=== PATIENT | male | born 1935 | race Caucasian/White ===

== ENCOUNTER 2018-11-15 17:46 | Inpatient (IN) | payer OTHER ==
[~2018-11-15] VITALS: Ht 182.9 cm; Wt 57.4 kg
[2018-11-15 20:54] VITALS: BP 141/71
--- NOTE | 2018-11-15 21:00 | NUR ---
RN perri admission notes Received Pt direct admit from [facility]. Pt arrived with two EMT personnels by a carisa. Pt is alert and oriented X2 and confused but able to make needs known. PT is on 5150 (gravely disabled adult and danger to others), converted to 14 days hold 11/27/18. Pt diagnose is Rule Out TB by Dr. Fernandez. Respiration is normal. No SOB. No nausea or vomiting. Pt denies any pain or discomfort. Pt does not have an IV access at this time. Pt is on negative pressure room with a sitter in the room. Pt also in contact precautions for MRSA and R/O of scabies. Wound care consult ordered for AM. Skin assessment done and pictures taken and placed in Pt's chart. Pt's belonging checked and done. Safety precautions is maintained. Instructed to call. Bed at low position, brakes locked, side rails upX2 and call light is within reach. Sitter at the bedside. Will continue to monitor.
--- NOTE | 2018-11-15 21:35 | NUR ---
RN medsurg notes Faxed face sheet to [facility]. Called [facility] to have psych eval by Dr. Monteiro.
[2018-11-15] MEDS ORDERED: LORA-258 PO (22:40)
[2018-11-15] MEDS ORDERED: MUPI22OI7 NS (22:40)
[2018-11-15] MEDS ORDERED: DIVA125C2 PO (22:40)
[2018-11-15] MEDS ORDERED: MAGN400O6 PO (22:40)
[2018-11-15] MEDS ORDERED: ACET-73 PO (22:40)
[2018-11-15] MEDS ORDERED: MEMA10TA PO (22:40)
[2018-11-15] MEDS ORDERED: DONE5TAB7 PO (22:40)
[2018-11-15] MEDS ORDERED: MAG355OR32 PO (22:40)
[2018-11-15] MEDS ORDERED: QUET25TA PO ×2 (22:40)
--- NOTE | 2018-11-15 22:40 | NUR ---
RN medsurg notes Contacted and informed Dr. Shaffer for direct admit orders. Meds reconcile is done already. Awaiting for direct admit orders.
--- NOTE | 2018-11-15 23:00 | NUR ---
NORMA rayo notes Pt refused to have an IV access insertion. Educated Pt about the important to have IV access. Pt states " I don't need it!" Will try again later.
[2018-11-15] MEDS ORDERED: ACETAMINOPHEN 325 MG TABLET PO PRN (23:30)
[2018-11-15] MEDS ORDERED: HYDROCODONE/APAP 5/325MG 1 EACH TABLET PO PRN (23:30)
[2018-11-15] MEDS ORDERED: MAGNESIUM HYDROXIDE 30 ML UDC PO PRN (23:30)
[2018-11-15] MEDS ORDERED: ONDANSETRON HCL/PF 4 MG/2 ML VIAL IVP PRN (23:30)
[2018-11-15] MEDS ORDERED: Z GUARD REMEDY 2 OZ OINT TP PRN (23:30)
[2018-11-15] MEDS ORDERED: MORPHINE SULFATE INJ 2 MG/ML DISP.SYRIN IV PRN (23:30)
[2018-11-15] MEDS ORDERED: PERMETHRIN 59 ML BOTTLE TP ONE (23:30)
[2018-11-15] MEDS ORDERED: MAG HYDROX/AL HYDROX/SIMETH 30 ML UDC PO PRN ×2 (23:30)
--- NOTE | 2018-11-15 23:44 | NUR ---
RNmedsurg notes Informed Dr. Fernandez that Pt has allergy to morphine, iodine and tertracycline. Stop order for morphine sulfate. Charge nurse NORMA Bullock aware and informed.
--- NOTE | 2018-11-16 02:00 | NUR ---
RN perri notes Pt refused to have IV access insertion. Tried multiple times Pt's keep refusing. Will continue to monitor.
--- NOTE | 2018-11-16 03:09 | NUR ---
RN medsur notes Pt is very agitated. Pt punched the wall. Informed and contacted Dr. Fernandez to get an order IM. Pt doesn't have IV access. Pt refused IV access earlier. Awaiting to get an order.
--- NOTE | 2018-11-16 03:13 | NUR ---
RN medsurg notes Received order from Dr. Fernandez for Ativan 2 mg IM x1. Order carried out.
[2018-11-16] MEDS ORDERED: LORAZEPAM INJ 2 MG/ML VIAL IM ONE (03:30)
--- NOTE | 2018-11-16 04:00 | NUR ---
RN joonsurshannon notes Pt was hitting the wall. Skin assessment done and pictures taken and placed in pt' chart. Sitter at the bed side. Will continue to monitor.
--- NOTE | 2018-11-16 04:15 | NUR ---
RN medsurg notes Pt grabbed AUSTIN Dominique by the neck. Informed and notified Charge nurse NORMA Bullock. Picture taken. Will continue to monitor.
--- NOTE | 2018-11-16 07:00 | NUR ---
RN medsurg notes Pt is alert and oriented X1-2. Pt is resting in bed comfortably. No SOB. No nausea or vomiting. Pt denies any pain or discomfort. Pt is on airborne precautions for R/O TB. 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 Wound care consult ordered. Pt refused IV access. Safety precautions is maintained. Bed at low position, brakes locked, side rails upX2 and call light is within reach. Sitter at the bedside. Will inform to morning nurse for MAXX.
--- NOTE | 2018-11-16 07:21 | NUR ---
MR RN OPENING NOTES RECEIVED PT ;EEP IN BED, EASILY AROUSABLE. HOB ELEVATED WITH 1:1 SITTER AT BEDSIDE. PT ON AIRBORNE PRECAUTIONS IN PLACE TO R/O TB. CONTACT PRECAUTIONS FOR MRSA AND R/O SCABIES MAINTAINED. ON ROOM AIR, BREATHING EVEN AND UNLABORED, NO SOB NOTED. SAFETY MEASURES IN PLACE. BED IN LOW LOCKED POSITION WITH SR UP X2. CALL LIGHT WITHIN REACH. WILL CONTINUE TO MONITOR ACCORDINGLY.
[2018-11-16 07:25] LABS: ALANINE AMINOTRANSFERASE 13 U/L (12-78); ALKALINE PHOSPHATASE 82 U/L (46-116); ASPARTATE AMINOTRANSFERASE 19 U/L (15-37); BILIRUBIN,TOTAL 0.4 mg/dL (0.2-1.0); CALCIUM, SERUM 8.6 mg/dL (8.5-10.1); CARBON DIOXIDE 21 mmol/L (21-32); CHLORIDE 109 mmol/L (98-107); CREATININE 1.3 mg/dL (0.6-1.3); GLUCOSE 82 mg/dL (74-106); MAGNESIUM 1.8 mg/dL (1.8-2.4); PHOSPHORUS 2.6 mg/dL (2.5-4.9); POTASSIUM 3.7 mmol/L (3.5-5.1); SODIUM SERUM 143 mmol/L (136-145); TOTAL PROTEIN, SERUM 7.3 g/dL (6.4-8.2); UREA NITROGEN, BLOOD 25 mg/dL (7-18)
[2018-11-16 07:48] LABS: BASOPHILS % (AUTO) 0.5 % (0.0-2.0); HEMATOCRIT 38 % (39-51); HEMOGLOBIN 12.5 g/dL (13.5-17.5); LYMPHOCYTES # (AUTO) 1.5 /CMM (0.8-4.8); LYMPHOCYTES % (AUTO) 25.6 % (20.0-44.0); MEAN CORPUSCULAR HGB CONC 33 g/dl (31.0-36.0); MEAN CORPUSCULAR VOLUME 97 fL (80-96); MONOCYTES # (AUTO) 0.7 /CMM (0.1-1.30); MONOCYTES % (AUTO) 12.2 % (2.0-12.0); NEUTROPHILS # (AUTO) 3.3 /CMM (1.8-8.9); NEUTROPHILS % (AUTO) 54.7 % (43.0-81.0); RED BLOOD CELL COUNT(AUTO) 3.89 MIL/uL (4.5-6.0)
[2018-11-16 08:00] VITALS: BP 122/78
[2018-11-16] MEDS: MUPIROCIN OINT 2% 22 GM TUBE SCH ×2 (08:27→21:38)
[2018-11-16] MEDS: MAGNESIUM HYDROXIDE 30 ML UDC PO SCH (08:27)
[2018-11-16] MEDS: PANTOPRAZOLE 40 MG TABLET.DR PO SCH (08:27)
[2018-11-16] MEDS: MEMANTINE HCL 5 MG TABLET PO SCH ×2 (08:27→21:32)
--- NOTE | 2018-11-16 08:33 | NUR ---
RN NOTES PATIENT CALM AND EATING BREAKFAST AT THIS TIME. HE TOOK ALL HIS MORNING MEDS WITHOUT PROBLEM. HE REMAINS REFUSING IV INSERTION. WILL CONTINUE TO MONITOR.
[2018-11-16] MEDS ORDERED: DIVALPROEX SODIUM 125 MG CAP.SPRINK PO SCH (09:00)
--- NOTE | 2018-11-16 09:15 | NUR ---
RN NOTES JUST RECEIVED CALL FROM [employer] AND INFORMED THAT PT'S PLATELET THIS MORNING IS 175 AND NOT 82.
[2018-11-16 09:20] LABS: PLATELET COUNT (AUTO) 175 /CMM (150-450)
[2018-11-16 09:46] LABS: LYMPHOCYTES % (MANUAL) 28 % (16-48); NEUTROPHILS % (MANUAL) 60 (42-76)
--- NOTE | 2018-11-16 09:46 | NUR ---
RN NOTES CALLED [employer] TO INFORMED LAMONT MAY REGARDING PT'S INCIDENT/ AGGRESSIVE BEHAVIOR FROM PREVIOUS SHIFT. SPOKE TO [employer] REWORKER AND SAID THAT DR DUNN IS NOT ON TODAY AND THAT KATY SHAW IS AWARE THAT PT HAS PSYCH CONSULT WILL COME AND SEE PT TODAY.
[2018-11-16 09:47] LABS: EOSINOPHILS % (MANUAL) 3 % (0-4); MONOCYTES % (MANUAL) 9 % (0-11.0)
--- NOTE | 2018-11-16 09:55 | NUR ---
RN NOTES INFORMED PT THAT WE NEED TO COLLECT SPUTUM SPECIMEN X3 FOR AFB AND VERBALIZED UNDERSTANDING. PT NOT COUGHING WITH NO SPUTUM OBTAINED AT THIS TIME. SPECIMEN BOTTLE PLACED AT BEDSIDE. WILL CONTINUE TO MONITOR.
--- NOTE | 2018-11-16 11:23 | NUR ---
RN NOTES PATIENT SEEN AND EVALUATED BY DR AVILES WITH ORDER TO START SEROQUEL 12.5MG PO DAILY AND 75MG AT HS. WILL CONTINUE TO MONITOR PT.
[2018-11-16] MEDS: QUETIAPINE FUMARATE 25 MG TABLET PO SCH (11:46)
[2018-11-16] MEDS: DIVALPROEX SODIUM 125 MG CAP.SPRINK PO SCH ×2 (12:11→17:31)
--- NOTE | 2018-11-16 14:11 | NUR ---
RN NOTES PT SEEN BY DR PERDUE. ASKED HIM IF HE WILL DO SKIN SCRAPPING TO CHECK FOR SCABIES, HE SAID THAT WHAT PT HAS IS CONTACT DERMATITIS AND NO SKIN SCRAPPING NEEDED. WILL CONTINUE TO MONITOR.
[2018-11-16 16:00] VITALS: BP 121/85
[2018-11-16] MEDS: LORAZEPAM 0.5 MG TABLET PO PRN (17:31)
--- NOTE | 2018-11-16 17:38 | NUR ---
RN NOTES PATIENT NOTED AGITATED. PRN ATIVAN 0.5MG TAB PO GIVEN ORDERED AT 1731. WILL CONTINUE TO MONITOR
--- NOTE | 2018-11-16 18:57 | NUR ---
MS RN CLOSING NOTES PATIENT AWAKE AND RESTING IN BED AT MODERATE HIGH BACKREST POSITION. 1:1 SITTER AT BEDSIDE. A/O X2 AND VERBALLY RESPONSIVE. PT WITH EPISODE OF CONFUSION AND AGITATION NOTED DURING THE DAY, ATIVAN GIVEN ORDERED, MORAL SUPPORT AND REDIRECTION GIVEN. MAINTAINED ON AIRBORNE PRECAUTIONS TO R/O TB AND CONTACT PRECAUTIONS FOR MRSA OF NARES. NEEDS TO COLLECT SPUTUM SPECIMEN FOR AFB. ON ROOM AIR, TOLERATING WELL WITH NO SOB NOTED. ALL NEEDS AND CARE ATTENDED WELL. SAFETY MEASURES IN PLACE. BED IN LOW LOCKED POSITION WITH SR UP X2. CALL LIGHT WITHIN REACH. WILL ENDORSE TO RESIDENT CARE MANAGER NURSE FOR MAXX.
--- NOTE | 2018-11-16 19:25 | NUR ---
MS RN OPENING PM NOTE REPORT RECIEVED FROM [facility]WO[facility]EN. PATIENT AWAKE AND SITTING ON BED SIDE, 1:1 SITTER BIBI AVILA AT BEDSIDE. A/O X2 AND VERBALLY RESPONSIVE. PT BEEN HAVING EPISODES OF CONFUSION AND AGITATION. ISOLATION AIRBORNE PRECAUTIONS TO R/O TB AND CONTACT PRECAUTIONS FOR MRSA OF NARES AND R/O SCABIES IN PLACE. ON ROOM AIR, TOLERATING WELL WITH NO SOB NOTED. SAFETY MEASURES IN PLACE. BED IN LOW LOCKED POSITION WITH SR UP X2. CALL LIGHT WITHIN REACH.
[2018-11-16] MEDS ORDERED: SODIUM CL FOR INHALATION 3% 15 ML VIAL.NEB IH ONE (19:30)
--- NOTE | 2018-11-16 19:35 | NUR ---
JAKE HUITRON AT BEDSIDE IN TO SEE PATIENT. NEW ORDERS RECIEVED. NEW ORDERS TO COLLECT AFB SPUTUM FROM PATIENT FOR NEXT THREE DAYS. 1944 CLARIFIED INDUCTION ORDERS AND NEW ORDERS FOR HYPERTONIC SALINE SOLUTION TO ENCOURAGE EXPECTORATION. RT NOTIFIED OF NEW ORDERS.
[2018-11-16 20:00] VITALS: BP 124/90
--- NOTE | 2018-11-16 21:10 | NUR ---
sputum collection attempted. patient sitting at edge of bed informed of need to collect sputum sample. patient cooperated and deep breathed and coughed but states "I am just so dry. nothing is really coming up."
[2018-11-16] MEDS: DONEPEZIL 5 MG TABLET PO SCH (21:32)
[2018-11-16] MEDS ORDERED: QUETIAPINE FUMARATE 25 MG TABLET PO SCH (22:00)
--- NOTE | 2018-11-16 22:15 | NUR ---
ns hypertonic unavailable at thsi time. followed up with rt in regards to sputum collection. state that they could not find the ns hypertonic solution. for the treatment. call made to er and charge nurse states they do not have ns hypertonic in stock in their [facility]. order printed and medication requested from [facility] operator but she called back and states she doesn't believe she has it in stock. will f/u for next dose in am when pharmacy returns.
[2018-11-16] MEDS ORDERED: SODIUM CL FOR INHALATION 3% 15 ML VIAL.NEB ONE (22:18)
--- NOTE | 2018-11-16 23:30 | NUR ---
brain rt came to follow up on sputum collection. [facility] 3% saline solution. patient seen but is sleeping in bed. per patient history. decided it was best not to disturb him and attempt sputum collection in the am.
--- NOTE | 2018-11-17 03:09 | NUR ---
[facility] order needs to be clarified with dr. gonzalez quantiferon gold test reorders as a lab order per dr. machado nursing order. order states he wants [facility] called lab and state that test may be a pathology test but recommend clarifying order with dr. gonzalez next time he rounds on the patient.
[2018-11-17] MEDS ORDERED: SODIUM CL FOR INHALATION 3% 15 ML VIAL.NEB IH SCH (06:00)
--- NOTE | 2018-11-17 06:30 | NUR ---
RN PM CLOSING NOTE. PATIENT RESTING IN BED IN NO APPARENT DISTRESS. SEEN WITH EYES CLOSED BIBI AVILA STILL AT BEDSIDE. PATIENT DID NOT HAVE COMBATIVE EPISODE LAST NIGHT BUT SOMETIMES WOULD GET UPSET WHEN NOT ALLOWED TO LEAVE HIS ROOM BUT WAS ABLE TO BE REDIRECTINED BY AUSTIN PER ELIF WORDS.
--- NOTE | 2018-11-17 07:36 | NUR ---
MS RN OPENING NOTES RECEIVED PATIENT IN BED RESTING COMFORTABLY IN MODERATE HIGH BACK REST, EASILY AROUSABLE. WITH 1:1 SITTER AT BEDSIDE. PATIENT ON AIRBORNE PRECAUTIONS IN PLACE TO R/O TB. CONTACT PRECAUTIONS FOR MRSA AND R/O SCABIES MAINTAINED. ON ROOM AIR, BREATHING EVEN AND UNLABORED, NO SOB NOTED. SAFETY MEASURES IN PLACE. BED IN LOW LOCKED POSITION WITH SIDE RAILS UP X2. CALL LIGHT WITHIN REACH. WILL CONTINUE TO MONITOR.
[2018-11-17 08:00] VITALS: BP 157/99
[2018-11-17] MEDS: PANTOPRAZOLE 40 MG TABLET.DR PO SCH (08:07)
[2018-11-17] MEDS: DIVALPROEX SODIUM 125 MG CAP.SPRINK PO SCH ×3 (08:31→16:56)
[2018-11-17] MEDS: QUETIAPINE FUMARATE 25 MG TABLET PO SCH ×2 (08:32→21:13)
[2018-11-17] MEDS: MEMANTINE HCL 5 MG TABLET PO SCH ×2 (08:32→20:18)
[2018-11-17] MEDS: MAGNESIUM HYDROXIDE 30 ML UDC PO SCH (08:32)
[2018-11-17] MEDS: MUPIROCIN OINT 2% 22 GM TUBE SCH ×2 (09:16→21:11)
[2018-11-17] MEDS ORDERED: OLANZAPINE 10 MG VIAL IM ONE (10:00)
[2018-11-17] MEDS ORDERED: LORAZEPAM INJ 2 MG/ML VIAL IV PRN (10:00)
--- NOTE | 2018-11-17 10:05 | NUR ---
MS RN NOTES 1 MG ATIVAN IM AND 5 MG ZYPREXE IM . ONE TIME DOSE PER DR. AVILES.
--- NOTE | 2018-11-17 10:15 | NUR ---
MS NORMA NOTES PATIENT VERY COMBATIVE, TRY HITTING ALL STAFF, CALLED SECURITY. CALLED DR. AVILES WITH ORDERS OF 5 MG ZYPREXE IM AND 1 MG ATIVAN IM. WILL CONTINUE TO MONITOR. Addendum: 11/17/18 at 1029 by NOAM BORJAS RN CHANGE TIME TO 10:00
[2018-11-17] MEDS ORDERED: LORAZEPAM INJ 2 MG/ML VIAL IM ONE (11:00)
[2018-11-17 16:00] VITALS: BP 153/88
[2018-11-17] MEDS ORDERED: SODIUM CL FOR INHALATION 3% 15 ML VIAL.NEB IH ONE (19:00)
--- NOTE | 2018-11-17 19:10 | NUR ---
MS RN CLOSING NOTES PATIENT IN BED RESTING COMFORTABLY IN MODERATE HIGH BACK REST, A/O X 1. WITH 1:1 SITTER AT BEDSIDE. PATIENT ON AIRBORNE PRECAUTIONS IN PLACE TO R/O TB. CONTACT PRECAUTIONS FOR MRSA. ON ROOM AIR, BREATHING EVEN AND UNLABORED, NO SOB NOTED. WITH EPISODE OF AGGRESSIVENESS AND COMBATIVE BEHAVIOR. SAFETY MEASURES IN PLACE. BED IN LOW LOCKED POSITION WITH SIDE RAILS UP X2. CALL LIGHT WITHIN REACH. WILL ENDORSED TO MANAGER CONTACT NURSE FOR MAXX.
--- NOTE | 2018-11-17 19:15 | NUR ---
MS RN OPENING NOTES Received patient awake, sitting on bed. On RA, no SOB/respiratory distress noted at this time. With 1:1 sitter at all times. Patient denies discomfort at this time. Kept on bed clean, dry and comfortable. On fall precautions. On isolation for TB precautions. Will continue to monitor accordingly.
[2018-11-17 20:00] VITALS: BP 141/47
[2018-11-17] MEDS: LORAZEPAM 0.5 MG TABLET PO PRN (20:18)
--- NOTE | 2018-11-17 20:30 | NUR ---
MS RN NOTES Patient refused induced sputum collection by RT. Reinforced to patient the indication of the intervention but patient persistently refused due to discomfort as claimed. However, patient was motivated to do deep breathing. Gave time to patient and will re-attempt to collect after the breathing treatment.
--- NOTE | 2018-11-17 21:01 | NUR ---
MS RN NOTES RT at bedside to collect sputum. Patient attempted but able to spit out scant saliva. Explained to patient very well the purpose and proper way of collecting sputum several repeated times but patient insisted to do it not and attempt to do in the morning. Approached the patient calmly, encouraged the patient to repeat the procedure but patient said he is tired to attempting it now and wanted to do it in the morning. Patient was able to take his bedtime medications. Provided some snacks per patient request. Sitter instruction to monitor the patient on the ante-room per patient request. Sitter is keeping an eye all the time to the patient. Will continue to monitor accordingly.
--- NOTE | 2018-11-17 21:03 | NUR ---
PT WAS GIVEN SODIUM CHLORIDE 3% HHN. PT REFUSING SPUTUM COLLECTION MULTIPLE TIMES. PT SAID HE WILL DO IT TOMORROW MORNING. RN AWARE.
[2018-11-17] MEDS: DONEPEZIL 5 MG TABLET PO SCH (21:12)
[2018-11-17] MEDS: ZOLPIDEM TARTRATE 5 MG TABLET PO PRN (21:12)
--- NOTE | 2018-11-18 06:36 | NUR ---
MS RN CLOSING NOTES Patient asleep, easily awaken. On RA, no SOB/respiratory distress noted. Afebrile the whole shift, no new unusualities noted. All nursing needs attended. Refused induced sputum collection. Patient does not want to be bothered. Patient easily irritated and agitated when asked to collect sputum and pictures. Kept patient on bed clean, dry and comfortable. Call light within easy reach. With 1:1 sitter at bedside at all times. Endorsed to the next shift.
[2018-11-18 07:26] LABS: IRON, SERUM 47 ug/dl (50-175); TOTAL IRON BINDING CAPACITY 174 ug/dl (250-450)
--- NOTE | 2018-11-18 07:34 | NUR ---
MS RN OPENING NOTE PATIENT IN BED RESTING COMFORTABLY, BREATHING ON ROOM AIR. PATIENT IN NO ACUTE DISTRESS. NO SOB NOTED. PATIENT MAINTAINED ON A 1:1 SITTER. PATIENT VERBALIZES NO PAIN AT THIS TIME. PATIENT MAINTAINED ON ISOLATION PRECAUTIONS. SAFETY PRECAUTIONS IN PLACE. PATIENT BED IS LOCKED AND IN LOWEST POSITION, CALL LIGHT WITHIN REACH. WILL CONTINUE TO MONITOR.
[2018-11-18 07:37] LABS: FERRITIN 219 ng/mL (8-388); FREE PSA 0.24 ng/mL (0.00-45); PROSTATE SPECIFIC ANTIGEN SCR 1.18 ng/mL (0.00-4.00); THYROID STIMULATING HORMONE 1.907 uIU/mL (0.358-3.74)
[2018-11-18 07:38] LABS: C-REACTIVE PROTEIN < 0.2 mg/dL (0.0-0.9)
[2018-11-18] MEDS: SODIUM CL FOR INHALATION 3% 15 ML VIAL.NEB IH SCH (07:59)
[2018-11-18] MEDS: PANTOPRAZOLE 40 MG TABLET.DR PO SCH (08:44)
[2018-11-18] MEDS: MEMANTINE HCL 5 MG TABLET PO SCH ×2 (08:45→21:50)
[2018-11-18] MEDS: QUETIAPINE FUMARATE 25 MG TABLET PO SCH ×2 (08:45→21:50)
[2018-11-18] MEDS: MAGNESIUM HYDROXIDE 30 ML UDC PO SCH (08:45)
[2018-11-18] MEDS: DIVALPROEX SODIUM 125 MG CAP.SPRINK PO SCH ×3 (08:45→16:42)
[2018-11-18] MEDS: MUPIROCIN OINT 2% 22 GM TUBE SCH ×2 (08:59→21:53)
--- NOTE | 2018-11-18 09:16 | NUR ---
MS RN NOTE WENT WITH RT TO HAVE PATIENT SPUTUM COLLECTED. PATIENT ATTEMPTED BUT AFTER A COUPLE ATTEMPTS PATIENT REFUSED TO CONTINUE AND UNABLE TO COLLECT SPUTUM. PATIENT REFUSES TO HAVE SKIN ASSESSED. PATIENT IN NO ACUTE DISTRESS. WILL CONTINUE TO MONITOR.
--- NOTE | 2018-11-18 14:26 | NUR ---
MS RN NOTE ATTEMPTED TO OBTAIN SPUTUM CULTURE WITH PATIENT AGAIN. PATIENT ATTEMPTED TO COUGH AND RELEASE SPUTUM BUT PATIENT CAN NOT RELEASE SPUTUM PATIENT DOES NOT HAVE ANY TO COUGH OUT. PATIENT STATES " I DONT HAVE ANY FOR YOU TO COUGH OUT". PATIENT RAISES VOICE AND THEN REFUSED TO CONTINUE. PATIENT IN NO ACUTE DISTRESS. NO SOB NOTED. WILL CONTINUE TO MONITOR.
[2018-11-18] MEDS: VITAMINS A AND D 56.7 GM TUBE TP PRN (15:13)
--- NOTE | 2018-11-18 16:00 | NUR ---
MS RN NOTE ATTEMPTED TO RETRIEVE SPUTUM CULTURE FROM PATIENT. PATIENT ATTEMPTS ONE TIME TO COUGH SPUTUM SAMPLE WITH SCANT SALIVA ONLY PRODUCED. PATIENT DISPLAYED AGGRESSIVE BEHAVIOR. EXPLAINED TO PATIENT THE RISKS VS BENEFITS UPON RETRIEVING SPUTUM CULTURE. INSTRUCTED PATIENT ABOUT DEEP BREATHING AND COUGHING TO ALLOW SPUTUM TO BE RELEASED. PATIENT RAISES VOICE AND STATES " YOU DONT KNOW ANYTHING, IM TIRED OF THIS". PATIENT GETS EASILY IRRITATED, UPSET, AND REFUSES TO CONTINUE. WILL CONTINUE TO MONITOR.
--- NOTE | 2018-11-18 16:10 | NUR ---
MS RN NOTE CONTACTED LAB REGARDING QUANTIFERON TEST AND COCCI SEROLOGY OF IGG, IGM, AND ANTIBODY. CONTACTED TO MAKE SURE LABS TO BE COMPLETED. PER LAB ALL IS ORDERED AND IS CURRENTLY PENDING. SPOKE WITH ID AND IS MADE AWARE. MD MADE AWARE. PATIENT IN NO ACUTE DISTRESS. WILL CONTINUE TO MONITOR.
[2018-11-18] MEDS: FERROUS SULFATE (325 MG) 325 MG/TAB TABLET PO SCH (16:42)
--- NOTE | 2018-11-18 18:52 | NUR ---
MS RN CLOSING NOTE PATIENT IN BED RESTING COMFORTABLY, BREATHING ON ROOM AIR SATURATING >95% SPO2. PATIENT IN NO ACUTE DISTRESS. NO SOB NOTED. ASSISTED PATIENT TO COUGH SPUTUM SAMPLE BUT PATIENT OFTEN IS EASILY IRRITATED AND BECOMES VERBALLY AGGRESSIVE. ATTEMPTED MULTIPLE TIMES TO GET SPUTUM SAMPLE BUT PATIENT REFUSES. ONLY SCANT SALIVA PRODUCED NO SPUTUM. WENT WITH RT IN THE AM, TO GET SPUTUM SAMPLE AND RT USED SODIUM CHLORIDE 3% TO INDUCE SPUTUM TO BE COUGHED BUT PATIENT DID NOT COMPLY TO RECEIVE SPUTUM. PATIENT MAINTAINED ON ISOLATION PRECAUTIONS. PATIENT MAINTAINED ON A 1:1 SITTER. PERFORMED WOUND CARE MUCH PATIENT ALLOWED. PATIENT KEPT CLEAN, DRY, AND COMFORTABLE THROUGHOUT SHIFT. ENDORSED TB TEST READING TO COST RECOVERY TECHNICIAN. CHARGE NURSE MADE AWARE. MD MADE AWARE. PATIENT BED IS LOCKED AND IN LOWEST POSITION. SAFETY PRECAUTIONS IN PLACE. CALL LIGHT WITHIN REACH. WILL ENDORSE CARE TO PM SHIFT FOR MAXX.
--- NOTE | 2018-11-18 19:05 | NUR ---
RN MS OPENING NOTES RECEIVED PATIENT IN ROOM AWAKE ALERT AND ORIENTED X 2, NOTED EASILY AGITATED, ON CONTACT ISOLATION PRECAUTIONS FOR AIRBORNE PRECAUTIONS, NOTED WITH PERIODS OF SITTING IN BED AND WALKING, NO IV SITE MD AWARE, PATIENT ORIENTED TO STAFF AND CALL LIGHT AND KEPT WITHIN REACH,LOW BED AND LOCKED, SITTER AT BEDSIDE, FLUID OFFERED, ALL NEEDS ATTENDED AT THIS TIME WILL CONTINUE TO MONITOR AND ATTEND TO NEEDS.
[2018-11-18 20:00] VITALS: BP 117/77
[2018-11-18] MEDS: DONEPEZIL 5 MG TABLET PO SCH (21:50)
--- NOTE | 2018-11-19 06:24 | NUR ---
RN MS CLOSING NOTES PATIENT IN ROOM AWAKE ALERT AND ORIENTED X 2, NOTED EASILY AGITATED, ON CONTACT ISOLATION PRECAUTIONS FOR AIRBORNE PRECAUTIONS, NOTED WITH PERIODS OF SITTING IN BED AND WALKING, NO IV SITE MD AWARE, CALL LIGHT KEPT WITHIN REACH,LOW BED AND LOCKED, FLUIDS OFFERED, SITTER AT BEDSIDE, DRESSINGS REMAIN C/D/I. ALL NEEDS ATTENDED AT THIS TIME WILL CONTINUE TO MONITOR AND ATTEND TO NEEDS AND ENDORSE TO NEXT SHIFT,PATIENT SLEPT WELL THROUGHOUT SHIFT.
--- NOTE | 2018-11-19 06:25 | NUR ---
NORMA MS NOTES PATIENT BOTH ARMS ASSESSED FOR ANY CHANGES UNABLE TO DETECT WHERE PPD WAS DONE. NO REDNESS NOTED, NO ELEVATION IN SIGN PRESENT. Addendum: 11/19/18 at 0703 by MICHELLE CASTANEDA RN LEFT FA PPD TEST, NO REDNESS NO INDURATION PRESENT -NEGATIVE.
[2018-11-19 07:00] LABS: BASOPHILS % (AUTO) 0.6 % (0.0-2.0); HEMATOCRIT 39 % (39-51); HEMOGLOBIN 12.5 g/dL (13.5-17.5); LYMPHOCYTES # (AUTO) 2.5 /CMM (0.8-4.8); LYMPHOCYTES % (AUTO) 34.3 % (20.0-44.0); MEAN CORPUSCULAR HGB CONC 33 g/dl (31.0-36.0); MEAN CORPUSCULAR VOLUME 97 fL (80-96); MONOCYTES # (AUTO) 0.9 /CMM (0.1-1.30); MONOCYTES % (AUTO) 12.2 % (2.0-12.0); NEUTROPHILS # (AUTO) 3.4 /CMM (1.8-8.9); NEUTROPHILS % (AUTO) 46.9 % (43.0-81.0); PLATELET COUNT (AUTO) 149 /CMM (150-450); RED BLOOD CELL COUNT(AUTO) 3.98 MIL/uL (4.5-6.0); WHITE BLOOD COUNT (AUTO) 7.3 K/uL (4.3-11.0)
[2018-11-19 07:24] LABS: ALANINE AMINOTRANSFERASE 11 U/L (12-78); ALBUMIN 2.8 g/dL (3.4-5.0); ALKALINE PHOSPHATASE 79 U/L (46-116); ASPARTATE AMINOTRANSFERASE 16 U/L (15-37); BILIRUBIN,TOTAL 0.3 mg/dL (0.2-1.0); CALCIUM, SERUM 8.9 mg/dL (8.5-10.1); CARBON DIOXIDE 27 mmol/L (21-32); CHLORIDE 106 mmol/L (98-107); CREATININE 1.2 mg/dL (0.6-1.3); GLUCOSE 77 mg/dL (74-106); MAGNESIUM 2.1 mg/dL (1.8-2.4); POTASSIUM 4.7 mmol/L (3.5-5.1); SODIUM SERUM 139 mmol/L (136-145); TOTAL PROTEIN, SERUM 7.3 g/dL (6.4-8.2); UREA NITROGEN, BLOOD 26 mg/dL (7-18)
[2018-11-19 08:00] VITALS: BP 128/78
[2018-11-19] MEDS: SODIUM CL FOR INHALATION 3% 15 ML VIAL.NEB IH SCH (08:00)
--- NOTE | 2018-11-19 08:00 | NUR ---
m/s multimedia producer: notes o.r nurse called and informed me that pt is schedule for egd this morning, but pt has no consult and order. o.r nurse wants me to call dr. bass. dr. bass notified and informed md that there is no gi consult that we are aware of. dr. bass cancelled the procedure and o.r. made aware. anthony made aware.
[2018-11-19 08:07] LABS: IMMUNOGLOBULIN A, SERUM 244 mg/dL (61-437); IMMUNOGLOBULIN G, SERUM 1915 mg/dL (700-1600); IMMUNOGLOBULIN M, SERUM 102 mg/dL (15-143)
--- NOTE | 2018-11-19 08:14 | NUR ---
WOUND CARE CONSULT WOUND CARE RECEIVED CONSULT FOR SKIN TEARS ON LEFT ARM. WOUND CARE WILL DEFER CONSULT AND TREATMENT PLANS TO PLASTIC SURGICAL TEAM WHO ARE CURRENTLY FOLLOWING THIS PATIENT. PATIENT WITH KAUSHIK AT 16, ALL PRESSURE ULCER PREVENTION MEASURES ARE NOTED TO BE IN PLACE. WILL SEE PRN.
[2018-11-19] MEDS: MUPIROCIN OINT 2% 22 GM TUBE SCH ×2 (09:00→20:25)
[2018-11-19] MEDS: MAGNESIUM HYDROXIDE 30 ML UDC PO SCH ×2 (09:00→09:06)
[2018-11-19] MEDS: PANTOPRAZOLE 40 MG TABLET.DR PO SCH (09:06)
[2018-11-19] MEDS: QUETIAPINE FUMARATE 25 MG TABLET PO SCH ×3 (09:06→21:06)
[2018-11-19] MEDS: FERROUS SULFATE (325 MG) 325 MG/TAB TABLET PO SCH ×2 (09:06→16:53)
[2018-11-19] MEDS: DIVALPROEX SODIUM 125 MG CAP.SPRINK PO SCH ×4 (09:06→20:25)
[2018-11-19] MEDS: MEMANTINE HCL 5 MG TABLET PO SCH ×2 (09:06→20:24)
[2018-11-19] MEDS: VITAMINS A AND D 56.7 GM TUBE TP PRN (09:08)
--- NOTE | 2018-11-19 09:30 | NUR ---
m/s helicopter crew chief: psych f/u seen by dr. cassidy, pt has court hearing today.
--- NOTE | 2018-11-19 10:00 | NUR ---
m/s engineer second assistant: notes pt refused full body assessment, but noted with dry scab right elbow, left arm, julia lower leg discoloration with scabs, and right knee scab. sitter at bedside. will continue to monitor.
[2018-11-19 10:07] LABS: *SPE A/G RATIO 0.9 (0.7-1.7); *SPE ALBUMIN 2.9 g/dL (2.9-4.4); *SPE ALPHA-1-GLOBULIN 0.2 g/dL (0.0-0.4); *SPE ALPHA-2-GLOBULIN 0.6 g/dL (0.4-1.0); *SPE BETA GLOBULIN 0.7 g/dL (0.7-1.3); *SPE GLOBULIN, TOTAL 3.3 g/dL (2.2-3.9); *SPE M-SPIKE Not Observed g/dL (Not Observed); *SPEGAMMA GLOBULIN 1.7 g/dL (0.4-1.8)
--- NOTE | 2018-11-19 10:30 | NUR ---
m/s ornamental metal worker: md visit seen and examined by dr. garcias at this time. pt remains on reverse isolation precaution to r/o tb. pt still unable to provide sputum despite 3% sodium chloride nebulizer. sitter remains at bedside. will continue to monitor.
--- NOTE | 2018-11-19 12:30 | NUR ---
m/s land resource specialist: id f/u seen by SHELLIE ALVES [facility] at this time.
--- NOTE | 2018-11-19 13:27 | NUR ---
m/s legal executive assistant: notes pt had court hearing today and per court order to discontinue hold under dr. cassidy. order carried out.
--- NOTE | 2018-11-19 15:00 | NUR ---
m/s healthcare project manager: supervisor sleeping bag department consult family ( and [id number]) at bedside at this time. at bedside and spoke to pt and re: right foot wound debridement. and pt verbalized understanding. dr. orona to come tomorrow as stated to do the debridement.
--- NOTE | 2018-11-19 15:30 | NUR ---
m/s ethernet network architect: notes marichuy () signed the consent and made aware of debridement to right foot tomorrow. also pt made aware. airborne precaution maintained and followed. sitter at bedside. will continue to monitor.
[2018-11-19 16:00] VITALS: BP 140/82
--- NOTE | 2018-11-19 17:00 | NUR ---
m/s malt liquors sales representative: notes dinner served. sitter remains at bedside. no distress noted. will continue to monitor.
--- NOTE | 2018-11-19 18:30 | NUR ---
m/s surveyor geodetic: notes pt resting quietly in bed with sitter at bedside. needs attended. remains on airborne isolation to r/o tb. no apparent distress noted.
--- NOTE | 2018-11-19 19:00 | NUR ---
MS RN OPENING NOTES Received patient, awake on bed. On RA, no SOB/respiratory distress noted. No complaints of discomfort at this time. With 1:1 sitter, patient remains easily aggressive and agitated, with occasional physically abusive to staff. Kept bed clean, dry and comfortable. Will continue to monitor accordingly.
[2018-11-19 20:00] VITALS: BP 154/83
[2018-11-19] MEDS: LORAZEPAM 0.5 MG TABLET PO PRN (20:24)
[2018-11-19] MEDS: DONEPEZIL 5 MG TABLET PO SCH (21:06)
--- NOTE | 2018-11-20 06:35 | NUR ---
MS RN CLOSING NOTES Patient asleep, easily awaken. On RA, no SOB/respiratory distress noted. All nursing needs attended, all due meds given as ordered, no ASE noted. Patient refused wound treatment at this time. With 1:1 sitter at bedside Kept patient on bed clean, dry and comfortable. Endorsed to the next shift.
--- NOTE | 2018-11-20 07:25 | NUR ---
MS RN OPENING NOTES RECEIVED PATIENT ASLEEP IN BED IN MODERATE HIGH BACK REST. EASILY AROUSABLE. WITH 1:1 SITTER AT BED SIDE. ON ISOLATION PRECAUTION TO R/O TB AND CONTACT PRECAUTION FOR MRSA AND SCABIES. SAFETY MEASURES IN PLACE, BED IN LOW LOCKED POSITION WITH SIDE RAILS UP X 2. CALL LIGHT WITHIN EASY REACH. WILL CONTINUE TO MONITOR.
[2018-11-20 08:00] VITALS: BP 149/80
[2018-11-20] MEDS: FERROUS SULFATE (325 MG) 325 MG/TAB TABLET PO SCH ×2 (08:40→16:21)
[2018-11-20] MEDS: MAGNESIUM HYDROXIDE 30 ML UDC PO SCH (08:40)
[2018-11-20] MEDS: MEMANTINE HCL 5 MG TABLET PO SCH ×2 (08:40→21:17)
[2018-11-20] MEDS: PANTOPRAZOLE 40 MG TABLET.DR PO SCH (08:40)
[2018-11-20] MEDS: DIVALPROEX SODIUM 125 MG CAP.SPRINK PO SCH ×4 (08:40→21:17)
[2018-11-20] MEDS: QUETIAPINE FUMARATE 25 MG TABLET PO SCH ×3 (08:41→21:17)
[2018-11-20] MEDS: MUPIROCIN OINT 2% 22 GM TUBE SCH ×2 (09:36→21:18)
[2018-11-20] MEDS: LORAZEPAM 0.5 MG TABLET PO PRN ×2 (12:17→16:21)
[2018-11-20 16:00] VITALS: BP 129/80
--- NOTE | 2018-11-20 17:20 | NUR ---
MS RN NOTES PATIENT NOTED WITH EPISODE OF AGGRESSION, PHYSICALLY AND VERBALLY ABUSIVE. CALLED DR. AVILES TWICE, NO ANSWER BUT LEFT A MESSAGE. WILL F/U.
--- NOTE | 2018-11-20 18:00 | NUR ---
MS RN NOTES CALLED AND PAGE DR. DAVIS REGARDING PATIENT. WAITING FOR CALL BACK. WILL F/U AND CONTINUE TO MONITOR.
--- NOTE | 2018-11-20 18:12 | NUR ---
MS RN NOTES CALLED DR. AVILES AGAIN AND LEFT MESSAGE REGARDING PATIENT'S BEHAVIOR. NO ANSWER. WAITING FOR CALL BACK. WILL F/U AND WILL CONTINUE TO MONITOR.
--- NOTE | 2018-11-20 18:46 | NUR ---
MS RN NOTES CALLED DR. AVILES AGAIN, NO ANSWER. LEFT MESSAGE REGARDING PATIENT [id number], RITU HURTADOIP. AWAITING FOR CALL BACK. WILL CONTINUE TO MONITOR.
--- NOTE | 2018-11-20 18:55 | NUR ---
MS RN CLOSING NOTES PATIENT SITTING IN BED. AGITATED, NOTED WITH AGGRESSIVE BEHAVIOR . CALLED, PAGED AND LEFT MESSAGE TO DR. AVILES AND DR. DAVIS, AWAITING FOR CALL BACK. WITH 1:1 SITTER AT BED SIDE. ISOLATION PRECAUTION MAINTAINED. SAFETY MEASURES IN PLACE, BED IN LOW LOCKED POSITION. CALL LIGHT WITHIN EASY REACH. WILL ENDORSED TO DESIGN INTERN NURSE FOR MAXX.
--- NOTE | 2018-11-20 19:30 | NUR ---
RN MS OPENING NOTES RECEIVED PATIENT SITTING ON BED. ALERT AND ORIENTED X1, VERBALLY RESPONSIVE, CONFUSED. STATING THAT HE NEEDS TO LEAVE TO GO TO WORK. NO BEHAVIORAL ISSUES. BREATHING EVEN AND UNLABORED. NO SOB NOTED. TOLERATING ROOM AIR. NO COMPLAINTS OF PAIN OR DISCOMFORT. NO FACIAL GRIMACING. NO IV ACCESS. SKIN DRY AND WARM TO TOUCH. AFEBRILE. REMAINS ON AIRBORNE/CONTACT ISOLATION. SITTER AT BEDSIDE FOR SAFETY. ALL OTHER NEEDS ATTENDED TO. SAFETY MEASURES IN PLACE. CALL LIGHT WITHIN REACH. WILL CONTINUE TO MONITOR.
[2018-11-20 20:00] VITALS: BP 137/83
--- NOTE | 2018-11-20 20:30 | NUR ---
RN MS NOTES ATTEMPTED TO COLLECT 3RD SPUTUM BUT PATIENT REFUSED. PER PATIENT "I DONT HAVE ANYTHING. TRY LATER." ENCOURAGED PATIENT TO COUGH BUT STILL REFUSED. WILL TRY AGAIN AT A LATER TIME.
[2018-11-20] MEDS: DONEPEZIL 5 MG TABLET PO SCH (21:17)
[2018-11-20 23:58] LABS: APPEARANCE,URINE CLEAR (CLEAR); BILIRUBIN,URINE NEGATIVE (NEGATIVE); BLOOD, URINE TRACE Ery/uL (NEGATIVE); COLOR,URINE YELLOW (YELLOW); KETONES,URINE NEGATIVE (NEGATIVE); LEUKOCYTE ESTERASE ,URINE NEGATIVE (NEGATIVE); NITRITE, URINE NEGATIVE (NEGATIVE); PROTEIN,URINE NEGATIVE (NEGATIVE); UGLUCOSE NEGATIVE (NEGATIVE); UROBILINOGEN,URINE 0.2 EU/dL (0.2)
[2018-11-21 00:31] LABS: BACTERIA,URINE Few /HPF (None Seen); SQUAMOUS EPITHELIAL CELL,UR Rare /HPF (None Seen); WBC,URINE 0-2 /HPF (0-3)
--- NOTE | 2018-11-21 06:00 | NUR ---
RN MS NOTES PATIENT CURRENTLY SLEEPING RIGHT NOW AND UNABLE TO COLLECT SPUTUM.
--- NOTE | 2018-11-21 06:54 | NUR ---
RN MS CLOSING NOTES PATIENT RESTING IN BED. NO ACUTE CHANGES THROUGHOUT SHIFT. BREATHING EVEN AND UNLABORED. NO SOB NOTED. TOLERATING ROOM AIR. NO COMPLAINTS OF PAIN OR DISCOMFORT. NO FACIAL GRIMACING. NO IV ACCESS. DRESSING ON THE RIGHT FOOT CLEAN DRY AND INTACT. REMAINS ON AIRBORNE/CONTACT ISOLATION. SITTER AT BEDSIDE FOR SAFETY. ALL OTHER NEEDS ATTENDED TO. SAFETY MEASURES IN PLACE. CALL LIGHT WITHIN REACH. WILL ENDORSE TO ONCOMING NURSE FOR MAXX.
--- NOTE | 2018-11-21 07:38 | NUR ---
MS RN NOTES PATIENT RECEIVED RESTING INSIDE ROOM. A/O X 1, NO ACUTE DISTRESS. PATIENT EASILY AGITATED. DENIES ANY PAIN OR DISCOMFORT. PROVIDED WITH CALM, SAFE ENVIRONMENT. MAINTAINED ISOLATION PRECAUTIONS. WILL CONTINUE TO MONITOR. BED LOCKED AND IN LOW POSITION. BILATERAL UPPER SIDE RAILS UP AND LOCKED. CALL LIGHT WITHIN EASY REACH
[2018-11-21] MEDS: SODIUM CL FOR INHALATION 3% 15 ML VIAL.NEB IH SCH (08:00)
--- NOTE | 2018-11-21 08:12 | NUR ---
MS RN NOTES SPOKE WITH LUIGI FROM LAB REGARDING FOLLOW-UP OF INITIAL SPUTUM/AFB RESULT. PER LUIGI, SHE SPOKE WITH LAB [facility] AND THEY SAID THAT RESULT WONT BE AVAILABLE UNTIL 11/23/18. AWARE. WILL CONTINUE TO MONITOR
[2018-11-21] MEDS: FERROUS SULFATE (325 MG) 325 MG/TAB TABLET PO SCH ×2 (09:45→16:53)
[2018-11-21] MEDS: PANTOPRAZOLE 40 MG TABLET.DR PO SCH (09:45)
[2018-11-21] MEDS: DIVALPROEX SODIUM 125 MG CAP.SPRINK PO SCH ×4 (09:45→20:44)
[2018-11-21] MEDS: MAGNESIUM HYDROXIDE 30 ML UDC PO SCH (09:46)
[2018-11-21] MEDS: QUETIAPINE FUMARATE 25 MG TABLET PO SCH ×4 (09:46→21:04)
[2018-11-21] MEDS: MEMANTINE HCL 5 MG TABLET PO SCH ×2 (09:46→20:44)
[2018-11-21] MEDS: HYDROGEL DRESSING 90 GM TUBE TP SCH (09:53)
[2018-11-21] MEDS ORDERED: LORAZEPAM 0.5 MG TABLET PO PRN (10:30)
[2018-11-21] MEDS: MUPIROCIN OINT 2% 22 GM TUBE SCH ×2 (11:28→20:44)
--- NOTE | 2018-11-21 18:54 | NUR ---
MS RN CLOSING NOTES PATIENT IN BED ALERT AND ORIENTED X 1, AFEBRILE WITH NO S/S OF DISTRESS OBSERVED. VERBALLY RESPONSIVE AND ABLE TO FOLLOW SIMPLE INSTRUCTIONS. STILL NOTED WITH EPISODES OF CONFUSION. SAFETY AND FALL PREVENTION MEASURES PROVIDED. MAINTAINED ON CONTACT/AIRBORNE ISOLATION ORDERED. PROPER HAND WASHING AND ISOLATION PRECAUTIONS PROVIDED. DIET WELL TOLERATED WITH MEAL INTAKE OF 50-100%. NO COMPLAINTS OF PAIN/DISCOMFORT REPORTED. KEPT CLEAN AND DRY, NEEDS ATTENDED. WILL ENDORSE ACCORDINGLY TO NOC SHIFT FOR CONTINUITY OF CARE.
[2018-11-21] MEDS: DONEPEZIL 5 MG TABLET PO SCH (21:04)
[2018-11-21] MEDS: ZOLPIDEM TARTRATE 5 MG TABLET PO PRN (21:04)
--- NOTE | 2018-11-22 06:48 | NUR ---
MS RN NOTES AWAKE & RESPONSIVE. NOT IN ANY DISTRESS. NO SOB NOTED. DENIES ANY PAIN OR DISCOMFORT AT THIS TIME. MONITORED ACCORDINGLY WITH SITTER AT BEDSIDE. CALL LIGHT WITHIN REACH. BED IN LOWEST POSITION. SR UP X 2 WITH BED ALARM ON FOR SAFETY. WILL ENDORSE TO NEXT SHIFT.
--- NOTE | 2018-11-22 07:45 | NUR ---
m/s lap grinder: notes follow up made to lab re: quanterron gold test result which is negative per clinical laboratory technician. unable to see on my end and had them faxed the result and verified result as negative. will inform pmd. will continue to monitor.
[2018-11-22] MEDS: SODIUM CL FOR INHALATION 3% 15 ML VIAL.NEB IH SCH (07:58)
[2018-11-22 08:00] VITALS: BP 125/80
--- NOTE | 2018-11-22 08:00 | NUR ---
m/s sales porter: notes dr. garcias here and informed re: quanterron gold test result which is negative. per dr. garcias pt can go today and to d'c isolation. cn made aware. will inform infection control nurse. will continue to monitor.
[2018-11-22] MEDS: FERROUS SULFATE (325 MG) 325 MG/TAB TABLET PO SCH ×2 (08:25→17:10)
[2018-11-22] MEDS: DIVALPROEX SODIUM 125 MG CAP.SPRINK PO SCH ×4 (08:25→21:38)
[2018-11-22] MEDS: MAGNESIUM HYDROXIDE 30 ML UDC PO SCH (08:25)
[2018-11-22] MEDS: QUETIAPINE FUMARATE 25 MG TABLET PO SCH ×4 (08:25→21:38)
[2018-11-22] MEDS: MEMANTINE HCL 5 MG TABLET PO SCH ×2 (08:25→21:38)
[2018-11-22] MEDS: PANTOPRAZOLE 40 MG TABLET.DR PO SCH (08:25)
[2018-11-22] MEDS: MUPIROCIN OINT 2% 22 GM TUBE SCH ×2 (08:27→21:52)
[2018-11-22] MEDS: HYDROGEL DRESSING 90 GM TUBE TP SCH (08:28)
--- NOTE | 2018-11-22 10:10 | NUR ---
m/s jacqui: notes spoke to esa (journeyman pipe welder) and informed me that we need clearance from infectious disease. pt for d'c planning once id clears patient. will continue to monitor. Addendum: 11/22/18 at 1048 by JANUSZ MOYERN esa (leonora) spoke to infection control (internal combustion engineer) and says that we need clearance from id as stated.
--- NOTE | 2018-11-22 10:30 | NUR ---
m/s table games supervisor: notes venessa (id) here and informed her re: negative quanterron gold test, "i will review his chart." no new order at this time.
--- NOTE | 2018-11-22 12:15 | NUR ---
m/s trade specialist: id f/u seen and examined by venessa (luiz) with order to Discontinue negative pressure isolation. order acknowledged. cn made aware.
--- NOTE | 2018-11-22 12:30 | NUR ---
m/s claim investigator: notes moved pt to room 316-1 at this time. pt is cooperative, but remains confused and disoriented to place and situation. reality orientation provided prn. sitter at bedside. will continue to monitor.
--- NOTE | 2018-11-22 15:00 | NUR ---
m/s manuscripts curator: notes up in chair. remains confused and disoriented. reality orientation provided prn. sitter remains at bedside. will continue to monitor.
[2018-11-22 16:00] VITALS: BP 118/75
[2018-11-22] MEDS: ENSURE ENLIVE 237 ML LIQUID (VANILLA) PO SCH (17:00)
--- NOTE | 2018-11-22 17:50 | NUR ---
m/s chair springer: notes pt had an accident and noted with jelly like substance stool. provided collection hat for next stool. kept clean and dry by the sitter. reality orientation provided prn. will continue to monitor.
--- NOTE | 2018-11-22 19:00 | NUR ---
m/s poll clerk: notes report given to howard (rn) for continuity of care. will continue to monitor.
--- NOTE | 2018-11-22 19:48 | NUR ---
RN MS OPENING NOTES RECEIVED PATIENT SITTING ON BED. ALERT AND ORIENTED X1, VERBALLY RESPONSIVE, CONFUSED. BREATHING EVEN AND UNLABORED. NO SOB NOTED. TOLERATING ROOM AIR. NO COMPLAINTS OF PAIN OR DISCOMFORT. NO FACIAL GRIMACING. NO IV ACCESS. SKIN DRY AND WARM TO TOUCH. AFEBRILE. SITTER AT BEDSIDE FOR SAFETY. ALL OTHER NEEDS ATTENDED TO. SAFETY MEASURES IN PLACE. CALL LIGHT WITHIN REACH. WILL CONTINUE TO MONITOR.
[2018-11-22 20:00] VITALS: BP 125/78
[2018-11-22] MEDS: DONEPEZIL 5 MG TABLET PO SCH (21:38)
--- NOTE | 2018-11-22 23:13 | NUR ---
RN MS NOTES PATIENT HAS HAD 3 EPISODES OF DIARRHEA. MUSHY/JELLY-LIKE IN CONSISTENCY WITH THE FIRST 2 AND THE THIRD BEING LIQUID MIXED WITH MUSHY/LIKE STOOL. BOWEL COLLECTED AND SENT TO LAB WITH FORM.
--- NOTE | 2018-11-22 23:30 | NUR ---
RN MS NOTES URINE COLLECTION FOR HISTOPLASMA HAS BEEN DIFFICULT DUE TO PATIENT URINATING AND MAKING LOOSE BOWELS ALL OVER THE FLOOR BEFORE MAKING IT TO TOILET. PROVIDED URINAL AND TOILET HAT FOR WHEN PATIENT GOES AGAIN. PATIENT REFUSES BEDSIDE COMMODE. SITTER ALSO MADE AWARE.
--- NOTE | 2018-11-23 06:42 | NUR ---
RN MS CLOSING NOTES PATIENT RESTING IN BED. NOT IN AN DISTRESS. BREATHING EVEN AND UNLABORED. NO SOB NOTED. TOLERATING ROOM AIR. NO COMPLAINTS OF PAIN OR DISCOMFORT. NO FACIAL GRIMACING. NO IV ACCESS. SITTER AT BEDSIDE FOR SAFETY. KEPT CLEAN DRY AND COMFORTABLE. RIGHT FOOT DRESSING CLEAN DRY AND INTACT. ALL OTHER NEEDS ATTENDED TO. SAFETY MEASURES IN PLACE. CALL LIGHT WITHIN REACH. WILL ENDORSE TO ONCOMING NURSE FOR MAXX.
--- NOTE | 2018-11-23 06:57 | NUR ---
RN MS NOTES URINE COLLECTED FOR HISTOPLASMA. LAB WILL BE CALLED TO ANTENNA ENGINEER RIGHT AWAY.
--- NOTE | 2018-11-23 07:01 | NUR ---
RN MS HEMA KELSEY FROM LAB WAS INFORMED OF URINE COLLECTION FOR HISTOPLASMA. PER LAURE, "THERE'S NO PATHOLOGIST TODAY" BUT HE WILL COME AND PICK IT UP. PER LAURE, JUST LEAVE IT IN [facility].
--- NOTE | 2018-11-23 07:15 | NUR ---
RN OPENING NOTES RECEIVED PATIENT IN BED RESTING. A/OX1-2, CONFUSED, CALM. NOT IN ANY FORM OF DISTRESS, NO SOB. DENIED PAIN OR DISCOMFORT AT THIS TIME. SITTER AT BEDSIDE FOR SAFETY. NO IV ACCESS NOTED, MD AWARE. KEPT PATIENT SAFE AND COMFORTABLE. BED IN LOW/LOCKED POSITION, SIDERAILS UPX2, CALL LIGHT IN REACH. WILL MONITOR ACCORDINGLY.
[2018-11-23] MEDS: PANTOPRAZOLE 40 MG TABLET.DR PO SCH (07:30)
[2018-11-23] MEDS: SODIUM CL FOR INHALATION 3% 15 ML VIAL.NEB IH SCH (07:39)
[2018-11-23 08:00] VITALS: BP 106/64
[2018-11-23 08:15] VITALS: BP 106/64
[2018-11-23] MEDS: ENSURE ENLIVE 237 ML LIQUID (VANILLA) PO SCH ×2 (08:57→13:00)
[2018-11-23] MEDS: DIVALPROEX SODIUM 125 MG CAP.SPRINK PO SCH ×2 (08:57→12:33)
[2018-11-23] MEDS: MEMANTINE HCL 5 MG TABLET PO SCH (08:58)
[2018-11-23] MEDS: FERROUS SULFATE (325 MG) 325 MG/TAB TABLET PO SCH (08:58)
[2018-11-23] MEDS: QUETIAPINE FUMARATE 25 MG TABLET PO SCH ×2 (08:58→12:33)
[2018-11-23] MEDS: MAGNESIUM HYDROXIDE 30 ML UDC PO SCH (08:58)
[2018-11-23] MEDS: HYDROGEL DRESSING 90 GM TUBE TP SCH (09:00)
--- NOTE | 2018-11-23 09:00 | NUR ---
RN NOTES PATIENT REFUSED ALL AM MEDS. EXPLAINED RISK AND BENEFITS BUT STILL REFUSED. WILL NOTIFY MD
--- NOTE | 2018-11-23 15:00 | NUR ---
RN NOTES REFUSED WOUND CARE, SKIN ASESSMENT, AND SKIN PHOTOS. PATIENT STATED "NO!" AND STARTED CURSING AT STAFF. STARTED TO GET AGITATED BUT WAS ABLE TO CALM DOWN.
--- NOTE | 2018-11-23 16:20 | NUR ---
DISCHARGED PATIENT IN STABLE CONDITION PICKED UP BY AMBULANCE CREW GOING BACK TO [facility]. REPORT GIVEN TO NORMA MEJIA AT [facility], DC INSTRUCTIONS GIVEN AND VERBALIZED UNDERSTANDING. DC PAPERWORK GIVEN HANDED TO AMBULANCE CREW. NO IV ACCESS. REMOVED NAME BAND. REFUSED PHOTOS
== END 2018-11-23 16:40 | DRG 623 ==
LOC: MED 20:44
PROVIDERS: ADMIT Nurse Practitioner Acute Care; ATTEND Internal Medicine
PROC: 0JBQ0ZZ Excision of Right Foot Subcutaneous Tissue and Fascia, Open Approach (ICD-10-PCS; principal; 2018-11-20)
DX: E11.621 Type 2 diabetes mellitus with foot ulcer (principal); F03.91 Unspecified dementia, unspecified severity, with behavioral disturbance; R91.8 Other nonspecific abnormal finding of lung field; E11.36 Type 2 diabetes mellitus with diabetic cataract; E11.42 Type 2 diabetes mellitus with diabetic polyneuropathy; G40.909 Epilepsy, unspecified, not intractable, without status epilepticus; I48.91 Unspecified atrial fibrillation; J44.9 Chronic obstructive pulmonary disease, unspecified; F39 Unspecified mood [affective] disorder; F41.9 Anxiety disorder, unspecified; L97.519 Non-pressure chronic ulcer of other part of right foot with unspecified severity; Z86.73 Personal history of transient ischemic attack (TIA), and cerebral infarction without residual deficits; Z87.891 Personal history of nicotine dependence; Z91.041 Radiographic dye allergy status; Z73.6 Limitation of activities due to disability; E11.51 Type 2 diabetes mellitus with diabetic peripheral angiopathy without gangrene; S91.115A Laceration without foreign body of left lesser toe(s) without damage to nail, initial encounter; S91.114A Laceration without foreign body of right lesser toe(s) without damage to nail, initial encounter; X58.XXXA Exposure to other specified factors, initial encounter; Y93.9 Activity, unspecified; Y92.009 Unspecified place in unspecified non-institutional (private) residence as the place of occurrence of the external cause; Z88.0 Allergy status to penicillin; Z85.850 Personal history of malignant neoplasm of thyroid; F29 Unspecified psychosis not due to a substance or known physiological condition; F10.21 Alcohol dependence, in remission; L98.8 Other specified disorders of the skin and subcutaneous tissue; S70.312A Abrasion, left thigh, initial encounter; S70.311A Abrasion, right thigh, initial encounter; S30.810A Abrasion of lower back and pelvis, initial encounter; Y33.XXXA Other specified events, undetermined intent, initial encounter; S41.112A Laceration without foreign body of left upper arm, initial encounter; Z22.322 Carrier or suspected carrier of Methicillin resistant Staphylococcus aureus; E88.09 Other disorders of plasma-protein metabolism, not elsewhere classified; D53.9 Nutritional anemia, unspecified; I12.9 Hypertensive chronic kidney disease with stage 1 through stage 4 chronic kidney disease, or unspecified chronic kidney disease; M10.9 Gout, unspecified; R59.0 Localized enlarged lymph nodes; D71 Functional disorders of polymorphonuclear neutrophils; N18.3 Chronic kidney disease, stage 3 (moderate); N17.0 Acute kidney failure with tubular necrosis
CPT/HCPCS: 36415; 71045-TC; 76536-TC; 80053-TC; 80164-TC; 81000-TC; 82164; 82378; 82728-TC; 82784; 83540-TC; 83615-TC; 83735-TC; 84100-TC; 84153-TC; 84154-TC; 84155; 84165; 84439-TC; 84443-TC; 85025-TC; 86140-TC; 86334; 86431-TC; 86480; 86800; 87116; 87206; 87556; 87806; 87899; 94640-TC; A4218; A6248; G0378; J2060; J3490

== ENCOUNTER 2018-12-06 13:24 | Inpatient (IN) | payer OTHER ==
[~2018-12-06] VITALS: Ht 182.9 cm; Wt 68.5 kg
[~2018-12-06 13:24] MED LIST: ACET-73 PO; DIVA125C2 PO; DONE5TAB7 PO; LORA-258 PO; MAG355OR32 PO; MAGN400O6 PO; MEMA10TA PO; MUPI22OI7 NS; QUET25TA PO
--- NOTE | 2018-12-06 13:31 | NUR ---
JOEL PEREZ FROM CARE FACILITY DUE TO A POSITIVE AF[employer] CULTURE. -COUGH. PT HAS NO MEDICAL COMPLAINTS AT THIS TIME. NO ACUTE DISTRESS NOTED. SKIN INTACT. ON AIRBORNE PRECAUTIONS. READY FOR EVAL.
[2018-12-06] MEDS ORDERED: FERR325T24 PO (13:41)
[2018-12-06] MEDS ORDERED: LOPE2CAP PO (13:41)
[2018-12-06] MEDS ORDERED: MULT-447 PO (13:41)
[2018-12-06] MEDS ORDERED: ONDA4TAB5 PO (13:41)
[2018-12-06] MEDS ORDERED: PANT40TA2 PO (13:41)
[2018-12-06] MEDS ORDERED: ZINC220C8 PO (13:41)
[2018-12-06] MEDS ORDERED: ACET-868 PO (13:41)
[2018-12-06] MEDS ORDERED: MAG30ORA PO (13:41)
[2018-12-06] MEDS ORDERED: HYDR-4384 PO (13:41)
--- NOTE | 2018-12-06 13:53 | NUR ---
ASSIGNED ROOM 101
[2018-12-06 14:47] LABS: BASOPHILS % (AUTO) 0.5 % (0.0-2.0); EOSINOPHILS % (AUTO) 4.8 % (0.0-6.0); HEMATOCRIT 38 % (39-51); HEMOGLOBIN 12.7 g/dL (13.5-17.5); LYMPHOCYTES # (AUTO) 1.6 /CMM (0.8-4.8); LYMPHOCYTES % (AUTO) 22.9 % (20.0-44.0); MEAN CORPUSCULAR HGB CONC 33 g/dl (31.0-36.0); MEAN CORPUSCULAR VOLUME 97 fL (80-96); MONOCYTES # (AUTO) 0.7 /CMM (0.1-1.30); MONOCYTES % (AUTO) 9.9 % (2.0-12.0); NEUTROPHILS # (AUTO) 4.3 /CMM (1.8-8.9); NEUTROPHILS % (AUTO) 61.9 % (43.0-81.0); PLATELET COUNT (AUTO) 244 /CMM (150-450); WHITE BLOOD COUNT (AUTO) 6.9 K/uL (4.3-11.0)
[2018-12-06 14:53] LABS: CALCIUM, SERUM 8.4 mg/dL (8.5-10.1); CREATININE 1.1 mg/dL (0.6-1.3); POTASSIUM 4.5 mmol/L (3.5-5.1)
--- NOTE | 2018-12-06 15:32 | NUR ---
PT FEELING RESTLESS, WANTS TO GO HOME. STATES NOTHING IS WRONG WITH HIM. REASSURED HIM THAT HE WILL BE GETTING A MORE COMFORTABLE BED SOON.
[2018-12-06] MEDS ORDERED: MAG HYDROX/AL HYDROX/SIMETH 30 ML UDC PO PRN ×2 (16:00→21:00)
[2018-12-06] MEDS ORDERED: ONDANSETRON HCL/PF 4 MG/2 ML VIAL IVP PRN (16:00)
[2018-12-06] MEDS ORDERED: ZOLPIDEM TARTRATE 5 MG TABLET PO PRN (16:00)
[2018-12-06] MEDS ORDERED: HYDROCODONE/APAP 5/325MG 1 EACH TABLET PO PRN (16:00)
[2018-12-06] MEDS ORDERED: ACETAMINOPHEN 325 MG TABLET PO PRN ×2 (16:00→21:00)
[2018-12-06] MEDS ORDERED: Z GUARD REMEDY 2 OZ OINT TP PRN (16:00)
[2018-12-06] MEDS ORDERED: MAGNESIUM HYDROXIDE 30 ML UDC PO PRN ×2 (16:00→21:00)
--- NOTE | 2018-12-06 16:27 | NUR ---
REPORT GIVEN TO NORMA FENTON FOR 101-MS AND MAXX. DR ESCOBAR ADMITTING.
[2018-12-06 16:30] VITALS: BP 129/85
--- NOTE | 2018-12-06 16:30 | NUR ---
PT TRANSFERRED TO UNIT VIA WC
--- NOTE | 2018-12-06 16:32 | NUR ---
MS RN NOTES PT RECEIVED IN ISOLATION ROOM 101. AIRBORNE PRECAUTIONS MAINTAINED.
--- NOTE | 2018-12-06 17:15 | NUR ---
MS RN NOTES PT HAD BM ALL OVER ROOM FLOOR.
--- NOTE | 2018-12-06 18:55 | NUR ---
MS RN END OF SHIFT NOTES PT STABLE IN ROOM, ON ROOM AIR NO S/SX OF RESP DISTRESS NOTED. ON ISOLATION PRECAUTIONS AIRBORNE IN NEG PRESSURE ROOM PER MD ORDER. WOUND PICS TAKEN/IN CHART. ADMISSION PROCESS COMPLETED. BED IN LOCKED/LOWEST POSITION. CALL LIGHT IN REACH. ORIENTATION TO ROOM PROVIDED. WILL ENDORSE TO PM NURSE FOR MAXX.
[2018-12-06 20:00] VITALS: BP 127/74
--- NOTE | 2018-12-06 20:12 | NUR ---
MS RN NOTES RECEIVED PT ON BED. A/O X 3 CONFUSED. SITTER AT BEDSIDE. ON ROOM AIR NO RESPIRATORY DISTRESS NOTED. ON ISOLATION AIRBORNE PRECAUTION OBSERVED. IV ACCESS ON LAC G20 SL PATENT AND INTACT. HEAD OF BED ELEVATED. SIDE RAILS UP. CALL LIGHT WITHIN REACH. BED ALARM ON. WILL CONTINUE TO MONITOR PT CLOSELY.
--- NOTE | 2018-12-06 20:15 | NUR ---
MS RN NOTES PER CNC LATHE MACHINE OPERATOR NERA, SPUTUM [employer] COLLECT IN AM.
[2018-12-06] MEDS: ISONIAZID (300 MG) 300 MG TABLET PO SCH ×2 (20:29→20:44)
[2018-12-06] MEDS: RIFAMPIN 300 MG CAPSULE PO SCH ×2 (20:29→20:44)
[2018-12-06] MEDS: ETHAMBUTOL HCL (400 MG) 400 MG TABLET PO SCH ×2 (20:29→20:44)
[2018-12-06] MEDS: PYRAZINAMIDE 500 MG TABLET PO SCH ×2 (20:29→20:44)
[2018-12-06] MEDS: PYRIDOXINE HCL 50 MG TABLET PO SCH ×2 (20:29→20:45)
--- NOTE | 2018-12-06 20:45 | NUR ---
MS RN NOTES PT REFUSING TB MEDS. PER PT HE WANTS TO SLEEP AND WILL TAKE IN AM. EXPLAINED RISK AND BENEFITS. PT STILL REFUSED. SECURITY TESTER VIET AND CHARGE NURSE INFORMED.
[2018-12-06] MEDS ORDERED: LOPERAMIDE HCL (2 MG CAP) 2 MG CAPSULE PO PRN (21:00)
[2018-12-07 04:00] VITALS: BP 148/91
[2018-12-07] MEDS: RIFAMPIN 300 MG CAPSULE PO SCH (06:02)
[2018-12-07 06:51] LABS: BASOPHILS % (AUTO) 0.6 % (0.0-2.0); EOSINOPHILS % (AUTO) 5.3 % (0.0-6.0); HEMATOCRIT 37 % (39-51); HEMOGLOBIN 12.3 g/dL (13.5-17.5); LYMPHOCYTES # (AUTO) 1.8 /CMM (0.8-4.8); LYMPHOCYTES % (AUTO) 27.7 % (20.0-44.0); MEAN CORPUSCULAR HGB CONC 33 g/dl (31.0-36.0); MEAN CORPUSCULAR VOLUME 96 fL (80-96); MONOCYTES # (AUTO) 0.7 /CMM (0.1-1.30); MONOCYTES % (AUTO) 10.1 % (2.0-12.0); NEUTROPHILS # (AUTO) 3.7 /CMM (1.8-8.9); NEUTROPHILS % (AUTO) 56.3 % (43.0-81.0); PLATELET COUNT (AUTO) 189 /CMM (150-450); RED BLOOD CELL COUNT(AUTO) 3.82 MIL/uL (4.5-6.0); WHITE BLOOD COUNT (AUTO) 6.6 K/uL (4.3-11.0)
[2018-12-07 07:15] LABS: CALCIUM, SERUM 8.4 mg/dL (8.5-10.1); CREATININE 1.1 mg/dL (0.6-1.3); MAGNESIUM 1.5 mg/dL (1.8-2.4); PHOSPHORUS 2.9 mg/dL (2.5-4.9); POTASSIUM 4.1 mmol/L (3.5-5.1)
--- NOTE | 2018-12-07 07:23 | NUR ---
MS RN NOTES NO ACUTE CHANGES NOTED DURING THE SHIFT. PROVIDED COMFORT AND SAFETY. EDUCATED ABOUT IMPORTANCE OF SPUTUM CULTURE. WILL ENDORSE TO THE AM NURSE FOR CONTINUITY OF CARE.
--- NOTE | 2018-12-07 07:30 | NUR ---
MS RN OPENING NOTES RECEIVED REPORT FROM PM NURSE. PT ON BED. A/O X 1 WITH FORGETFULNESS. PATIENT IS ANGRY AMD UNCOOPERATIVE SOME TIME.INDEPENDENT WITH ADL. SITTER AT BEDSIDE. ON ROOM AIR NO RESPIRATORY DISTRESS NOTED. ON ISOLATION AIRBORNE PRECAUTION OBSERVED. IV ACCESS ON LAC G20 SL PATENT AND INTACT. HEAD OF BED ELEVATED. SIDE RAILS UP. CALL LIGHT WITHIN REACH. BED ALARM ON. WILL CONTINUE TO MONITOR .
[2018-12-07] MEDS: PANTOPRAZOLE 40 MG TABLET.DR PO SCH (07:48)
[2018-12-07 08:00] VITALS: BP 148/88
[2018-12-07] MEDS: ISONIAZID (300 MG) 300 MG TABLET PO SCH (08:11)
[2018-12-07] MEDS: PYRIDOXINE HCL 50 MG TABLET PO SCH (08:11)
[2018-12-07] MEDS: FERROUS SULFATE (325 MG) 325 MG/TAB TABLET PO SCH ×2 (08:11→16:33)
[2018-12-07] MEDS: MEMANTINE HCL 5 MG TABLET PO SCH ×2 (08:11→16:33)
[2018-12-07] MEDS: ETHAMBUTOL HCL (400 MG) 400 MG TABLET PO SCH (08:11)
[2018-12-07] MEDS: PYRAZINAMIDE 500 MG TABLET PO SCH (08:11)
[2018-12-07] MEDS: ZINC SULFATE 220 MG CAPSULE PO SCH (08:11)
[2018-12-07] MEDS ORDERED: SODIUM CL FOR INHALATION 3% 15 ML VIAL.NEB IH ONE (10:30)
[2018-12-07] MEDS ORDERED: DEXTROSE 50%-WATER 50 ML DISP.SYRIN IV PRN (10:30)
--- NOTE | 2018-12-07 10:33 | NUR ---
MS RN NOTE SEEN BY ,UPDATED ABOUT PATIENT CONDITION WITH LABS.GOT NEW ORDERS.OK FOR SCD FOR DVT PROPHYLAXIS.PATIENT IS AMBULATORY.MADE AWARE PATIENT REFUSING SCD.INDUCE SPUTUM FOR TB TEST.PLACED NEW ORDERS.RT SCALES MADE AWARE.
[2018-12-07] MEDS: Magnesium 1GM/D5W 100ML PREMIX 100 ML IV SCH ×2 (10:59→12:06)
[2018-12-07] MEDS ORDERED: Magnesium 1GM/D5W 100ML PREMIX PIGGYBACK IV ONE (11:00)
[2018-12-07] MEDS: BLOOD SUGAR DIAGNOSTIC 1 EACH STRIP IN SCH ×3 (11:19→21:22)
--- NOTE | 2018-12-07 12:25 | NUR ---
RT NOTE, NEBULIZED INHALATION FOR 3% NORMAL SALINE FOR SPUTUM SAMPLING, PT. LARRY PARTIALLY WELL, NO COUGHING, NO SPUTUM TO BE COLLECTED, B/S CLEAR. DR. ESCOBAR/DR. PUENTE INFORMED AT THE BEDSIDE, FOR NO SPUTUM COLLECTION, PT. REFUSING TO COUGH AND ANY CONTACT. Addendum: 12/09/18 at 1040 by YORDY GONZALEZ RT Amended: Links added.
[2018-12-07 16:00] VITALS: BP 150/76
--- NOTE | 2018-12-07 16:18 | NUR ---
MS RN NOTE PATIENT UNABLE TO EXPECTORATE SPUTUM SAMPLE.UNABLE TO INDUCE WITH HYPERTONIC SALINE.WILL ENCOURAGE PATIENT TO EXPECTORATE.WILL CONTINUE TO MONITOR.
--- NOTE | 2018-12-07 17:19 | NUR ---
MS RN NOTE SEEN BY ,MADE AWARE ABOUT UNABLE TO COLLECT SPUTUM FOR TEST.ENCOURAGING HIM TO COUGH IT OUT IN STERILE CUP PROVIDED.GOT NEW ORDER FOR CT CHEST WITHOUT CONTRAST TO R/O TB.WILL CONTINUE TO MONITOR.
--- NOTE | 2018-12-07 19:05 | NUR ---
MS RN CLOSING NOTES PT IN BED. A/O X 1 WITH FORGETFULNESS. PATIENT IS CALM AND COOPERATIVE .INDEPENDENT WITH ADL. SITTER AT BEDSIDE. ON ROOM AIR NO RESPIRATORY DISTRESS NOTED. ON ISOLATION AIRBORNE PRECAUTION OBSERVED. IV ACCESS ON LAC G20 SL PATENT AND INTACT. HEAD OF BED ELEVATED. SIDE RAILS UPX2. CALL LIGHT WITHIN REACH. BED ALARM ON. TO DO HYPERTONIC SALINE SPUTUM INDUCTION TOMORROW.BEDSIDE REPORT GIVEN TO PM NURSE FOR MAXX.
--- NOTE | 2018-12-07 19:30 | NUR ---
RN OPENING NOTES RECEIVED PATIENT A/O X3 SHOWING NO SIGNS OF OF DISTRESS. PATIENT ON ROOM AIR AND NO SOB. PATIENT IS DNR WITH ISOLATION AIRBORNE PRECAUTIONS. PATIENT HAS A LEFT AC SALINE LOCK GAUGE #20 PATENT AND FLUSHING WELL. SAFETY MEASURES APPLIED BED LOW, SIDE RAILS UP X3, CALL LIGHT WITHIN REACH. WILL CONTINUE TO MONITOR.
[2018-12-07 20:00] VITALS: BP 134/82
--- NOTE | 2018-12-08 00:12 | NUR ---
MS RN NOTES CALLED RADIOLOGY TO FOLLOW UP WITH CT CHEST W/O CONTRAST. PER RADIOLOGY THEY ARE READY, BUT PT REFUSE FOR NOW. PER PT HE WANTS TO SLEEP AND NOT BE BOTHERED. INFORMED RADIOLOGY TO PHYSICAL METEOROLOGIST THE PT 0600.
[2018-12-08 04:00] VITALS: BP 157/85
--- NOTE | 2018-12-08 05:59 | NUR ---
MS RN NOTE PATIENT WAS OFFERED RIFAMPIN MEDICATION AND REFUSED. WILL ENDORSE TO THE 0700 MORNING SHIFT TO TRY AND ADMINISTER AGAIN.
[2018-12-08 06:49] LABS: BASOPHILS # (AUTO) 0.1 /CMM (0.0-0.2); BASOPHILS % (AUTO) 0.8 % (0.0-2.0); EOSINOPHILS % (AUTO) 5.8 % (0.0-6.0); HEMATOCRIT 39 % (39-51); LYMPHOCYTES # (AUTO) 1.9 /CMM (0.8-4.8); LYMPHOCYTES % (AUTO) 27.8 % (20.0-44.0); MEAN CORPUSCULAR HGB CONC 33 g/dl (31.0-36.0); MEAN CORPUSCULAR VOLUME 96 fL (80-96); MONOCYTES # (AUTO) 0.7 /CMM (0.1-1.30); MONOCYTES % (AUTO) 11.1 % (2.0-12.0); NEUTROPHILS # (AUTO) 3.6 /CMM (1.8-8.9); NEUTROPHILS % (AUTO) 54.5 % (43.0-81.0); PLATELET COUNT (AUTO) 218 /CMM (150-450); RED BLOOD CELL COUNT(AUTO) 4.06 MIL/uL (4.5-6.0); WHITE BLOOD COUNT (AUTO) 6.7 K/uL (4.3-11.0)
[2018-12-08 07:03] LABS: CALCIUM, SERUM 8.8 mg/dL (8.5-10.1); PHOSPHORUS 3.4 mg/dL (2.5-4.9); POTASSIUM 4.1 mmol/L (3.5-5.1)
--- NOTE | 2018-12-08 07:03 | NUR ---
ME RN CLOSING NOTES PATIENT SHOWS NO SIGNS OF DISTRESS OR COMPLAINING OF ANY DISCOMFORT. ALL AIRBORNE ISOLATION PRECAUTIONS ARE APPLIED. ENDORSED PATIENT TO AM NURSE
[2018-12-08] MEDS: RIFAMPIN 300 MG CAPSULE PO SCH (07:09)
[2018-12-08] MEDS: PANTOPRAZOLE 40 MG TABLET.DR PO SCH (07:09)
[2018-12-08] MEDS: BLOOD SUGAR DIAGNOSTIC 1 EACH STRIP IN SCH ×4 (07:30→22:01)
[2018-12-08 08:00] VITALS: BP 167/85
[2018-12-08] MEDS ORDERED: SODIUM CL FOR INHALATION 3% 15 ML VIAL.NEB IH ONE (09:00)
--- NOTE | 2018-12-08 09:02 | NUR ---
RT NOTE, PT. REFUSING NEBULIZED INHALATION FOR 3% NORMAL SALINE FOR SPUTUM SAMPLING, B/S CLEAR. DR. PUENTE INFORMED. FOR NO SPUTUM COLLECTION, PT. REFUSING TO COUGH AND ANY CONTACT. Addendum: 12/09/18 at 1040 by YORDY GONZALEZ RT Amended: Links added.
[2018-12-08] MEDS: FERROUS SULFATE (325 MG) 325 MG/TAB TABLET PO SCH ×2 (09:17→17:37)
[2018-12-08] MEDS: ZINC SULFATE 220 MG CAPSULE PO SCH (09:17)
[2018-12-08] MEDS: PYRIDOXINE HCL 50 MG TABLET PO SCH (09:17)
[2018-12-08] MEDS: PYRAZINAMIDE 500 MG TABLET PO SCH (09:17)
[2018-12-08] MEDS: ISONIAZID (300 MG) 300 MG TABLET PO SCH (09:17)
[2018-12-08] MEDS: MEMANTINE HCL 5 MG TABLET PO SCH ×2 (09:17→17:37)
[2018-12-08] MEDS: ETHAMBUTOL HCL (400 MG) 400 MG TABLET PO SCH (09:18)
--- NOTE | 2018-12-08 10:08 | NUR ---
MS RN NOTES OPENING RECEIVED PATIENT IN BED COMFORTABLE. A/O X3 WITH NO SIGNS OF OF SOB ON ROOM AIR. PATIENT ON AIRBORNE ISOLATION PRECAUTIONS. PATIENT HAS A LEFT AC SALINE LOCK GAUGE #20, FLUSHED WELL AND PATENT. SAFETY MEASURES OBSERVED, BED LOCKED AT THE LOWEST POSITION, SIDE RAILS UP X2, CALL LIGHT WITHIN REACH. WILL CONTINUE TO MONITOR.
--- NOTE | 2018-12-08 15:46 | NUR ---
MS RN NOTES SPOKE TO YORDY MCDONOUGH ABOUT THE [employer] SAMPLE. UNABLE TO OBTAIN SAMPLE DUE TO ABSENT SPUTUM.
[2018-12-08 16:00] VITALS: BP 124/91
--- NOTE | 2018-12-08 19:55 | NUR ---
TRANSFER OF CARE 1955 RECEIVED PATIENT FROM NORMA GALAVIZ AT 1949. PATIENT IN BED, AWAKE, RESTING COMFORTABLY. A/O X 3. SITTER AT BED SIDE. ON ROOM AIR. NO SIGNS OF RESPIRATORY DISTRESS NOTED. DENEIS SHORTNESS OF BREATH. PATIENT ON ISOLATION AIRBORNE PRECAUTIONS. IV ACCESS LAC G#20 IS S/L, PATENT, INTACT, FLUSHED. DENIES PAIN OR DISCOMFORT AT THIS TIME. SAFETY PRECAUTIONS IMPLEMENTED; CALL LIGHT WITHIN REACH, BED ALARM ON, BED LOWEST POSITION, BED LOCKED, SIDE RAILS UP X2. WILL CONTINUE TO MONITOR.
--- NOTE | 2018-12-08 19:56 | NUR ---
MS RN CLOSING NOTES PT IS IN BED. A/O X 3. PATIENT IS CALM AND COOPERATIVE WITH ADL. SITTER AT BEDSIDE. ON ROOM AIR NO RESPIRATORY DISTRESS NOTED AT THIS TIME. PT ON ISOLATION AIRBORNE PRECAUTION . IV ACCESS ON LAC G20 SL PATENT AND INTACT, FLUSHED WELL.SIDE RAILS UPX2. CALL LIGHT WITHIN REACH. BED ALARM ON , LOCKED AT LOWEST LEVEL. WAS NOT ABLE TO OBTAIN SPUTUM CULTURE, INFORMED PM NURSE. BEDSIDE REPORT GIVEN TO PM NURSE FOR MAXX.
[2018-12-08 20:00] VITALS: BP 132/75
[2018-12-09] VITALS: BP 124/70
[2018-12-09 06:07] VITALS: BP 126/78
[2018-12-09] MEDS: RIFAMPIN 300 MG CAPSULE PO SCH (06:07)
--- NOTE | 2018-12-09 06:36 | NUR ---
RN CLOSING NOTES PATIENT CURRENTLY ASLEEP, RESTING COMFORTABLY IN BED, EASILY AWAKENED TO VERBAL STIMULI. NO SIGNS OF RESPIRATORY DISTRESS. NO SHORTNESS OF BREATH NOTED. AIRBORNE PRECAUTIONS IMPLEMENTED THROUGHOUT THE SHIFT. NO COMPLAINTS OF PAIN OR DISCOMFORT THROUGHOUT THE SHIFT. IV ACCESS LAC G#2O REMAINS S/L INTACT PATENT, FLUSHED WELL. ENCOURAGED PATIENT TO EXPECTORATE BUT PATIENT WAS UNABLE TO. PATIENT STATE'S HE CANNOT GIVE SPUTUM SAMPLE, SO I WAS NOT ABLE TO OBTAIN SPECIMEN AT THIS TIME, WILL INFORM DAYSHIFT NURSE. SAFETY PRECAUTIONS IMPLEMENTED; CALL LIGHT WITHIN REACH, BED ALARM ON, BED LOWEST POSITION, BED LOCKED, SIDE RAILS UP X2. SITTER AT BED SIDE. WILL ENDORSE TO DAYSHIFT NURSE FOR CONTINUITY OF CARE.
[2018-12-09 06:49] LABS: CALCIUM, SERUM 8.8 mg/dL (8.5-10.1); CREATININE 1.2 mg/dL (0.6-1.3); MAGNESIUM 1.9 mg/dL (1.8-2.4); PHOSPHORUS 3.5 mg/dL (2.5-4.9); POTASSIUM 4.2 mmol/L (3.5-5.1)
--- NOTE | 2018-12-09 07:09 | NUR ---
RN NOTES ENDORSED CARE TO NORMA ROBERTS.
--- NOTE | 2018-12-09 07:15 | NUR ---
MS RN OPENING NOTE RECEIVED REPORT FROM [facility] SHIFT NURSE. PT AWAKE IN BED, ALERT AND ORIENTED X 4, ON ROOM AIR, SATURATING WELL, NO SIGNS OF RESPIRATORY DISTRESS NOTED. LEFT AC G20 SALINE LOCK PATENT, FLUSHED WITH NS. BED IN LOW POSITION, LOCKED, CALL LIGHT WITHIN REACH. SITTER AT BEDSIDE, AIRBORNE AND CONTACT ISOLATION PRECAUTIONS IN PLACE. DISCUSSED PLAN OF CARE WITH PT.
[2018-12-09] MEDS: PANTOPRAZOLE 40 MG TABLET.DR PO SCH (07:35)
[2018-12-09] MEDS: BLOOD SUGAR DIAGNOSTIC 1 EACH STRIP IN SCH ×4 (07:36→22:46)
[2018-12-09 07:43] LABS: BASOPHILS % (AUTO) 0.6 % (0.0-2.0); EOSINOPHILS % (AUTO) 4.6 % (0.0-6.0); HEMATOCRIT 38 % (39-51); HEMOGLOBIN 12.7 g/dL (13.5-17.5); LYMPHOCYTES # (AUTO) 1.8 /CMM (0.8-4.8); LYMPHOCYTES % (AUTO) 23.7 % (20.0-44.0); MEAN CORPUSCULAR HGB CONC 33 g/dl (31.0-36.0); MEAN CORPUSCULAR VOLUME 96 fL (80-96); MONOCYTES # (AUTO) 0.8 /CMM (0.1-1.30); MONOCYTES % (AUTO) 9.8 % (2.0-12.0); NEUTROPHILS # (AUTO) 4.7 /CMM (1.8-8.9); NEUTROPHILS % (AUTO) 61.3 % (43.0-81.0); PLATELET COUNT (AUTO) 223 /CMM (150-450); WHITE BLOOD COUNT (AUTO) 7.7 K/uL (4.3-11.0)
[2018-12-09 08:00] VITALS: BP 142/89
[2018-12-09] MEDS: ISONIAZID (300 MG) 300 MG TABLET PO SCH (08:42)
[2018-12-09] MEDS: ZINC SULFATE 220 MG CAPSULE PO SCH (08:42)
[2018-12-09] MEDS: ETHAMBUTOL HCL (400 MG) 400 MG TABLET PO SCH (08:42)
[2018-12-09] MEDS: FERROUS SULFATE (325 MG) 325 MG/TAB TABLET PO SCH ×2 (08:42→16:56)
[2018-12-09] MEDS: PYRIDOXINE HCL 50 MG TABLET PO SCH (08:42)
[2018-12-09] MEDS: PYRAZINAMIDE 500 MG TABLET PO SCH (08:42)
[2018-12-09] MEDS: MEMANTINE HCL 5 MG TABLET PO SCH ×2 (08:42→16:56)
--- NOTE | 2018-12-09 10:30 | NUR ---
SPOKE WITH YORDY FROM RT. PER YORDY, TODAY PT REFUSED ANY CONTACT, WAS COMBATIVE, UNCOOPERATIVE, NOT WILLING TO PROVIDE SPUTUM SAMPLE NOR INHALATION THERAPY. PER YORDY ON 12/07 FIRST DOSE OF 3% NS WAS GIVEN, NO SPUTUM WAS COLLECTED. DR. ESCOBAR MADE AWARE/DR. PUENTE. 12/08/2018 ANOTHER ATTEMPT WAS MADE, PT REFUSED, DR ESCOBAR AWARE. ALL LUNG SOUNDS CLEAR IN ALL LOBES. CHARGE NURSE NOTIFIED.
[2018-12-09] MEDS: LORAZEPAM 0.5 MG TABLET PO PRN (10:41)
--- NOTE | 2018-12-09 11:29 | NUR ---
RT NOTE TODAY ANOTHER ATTEMPT FOR SPUTUM COLLECTION PT. REFUSED ANY CONTACT, PT. COMBATIVE, UNCOOPERATIVE, NOT WILLING TO PROVIDE SPUTUM SAMPLE NOR INHALATION THERAPY. 12/07/2018 AND 12/08/2018 ATTEMPT WAS MADE, PT REFUSED, DR ESCOBAR AWARE/ INFORMED CHARGE NURSE NOTIFIED.
[2018-12-09] MEDS: Z GUARD REMEDY 2 OZ OINT TP SCH ×2 (12:24→22:44)
[2018-12-09 16:00] VITALS: BP 137/89
--- NOTE | 2018-12-09 18:56 | NUR ---
MS RN CLOSING NOTE PT AWAKE IN BED, ALERT AND ORIENTED X 3 (NOT CERTAIN OF TODAY'S DATE), ON ROOM AIR, SATURATING WELL, NO SIGNS OF RESPIRATORY DISTRESS NOTED. PROVIDED SAFETY AND COMFORT TO PT THROUGHOUT SHIFT. ALL DUE MEDS GIVEN. WILL ENDORSE TO NOC SHIFT NURSE.
--- NOTE | 2018-12-09 20:02 | NUR ---
RN MS INITIAL NOTE RECEIVED PATIENT IN BED COMFORTABLE. A/O X3 WITH NO SIGNS OF OF SOB ON ROOM AIR. PATIENT ON AIRBORNE ISOLATION PRECAUTIONS, ENFORCED, D/T PT ATTEMPT TO GET OF RM, 1:1 SITTER AT BEDSIDE. PATIENT HAS A LEFT AC SALINE LOCK GAUGE #20, FLUSHED WELL AND PATENT. SAFETY MEASURES OBSERVED, BED LOCKED AT THE LOWEST POSITION, SIDE RAILS UP X2, CALL LIGHT WITHIN REACH. WILL CONTINUE TO MONITOR.
[2018-12-10] VITALS: BP 117/71
--- NOTE | 2018-12-10 06:12 | NUR ---
RN MS CLOSING NOTE ENDORSED PATIENT IN BED COMFORTABLE. A/O X3 WITH NO SIGNS OF OF SOB ON ROOM AIR. PATIENT ON AIRBORNE ISOLATION PRECAUTIONS, ENFORCED, D/T PT ATTEMPT TO GET OF RM, 1:1 SITTER AT BEDSIDE. PATIENT HAS A LEFT AC SALINE LOCK GAUGE #20, FLUSHED WELL AND PATENT. SAFETY MEASURES OBSERVED, BED LOCKED AT THE LOWEST POSITION, SIDE RAILS UP X2, CALL LIGHT WITHIN REACH. WILL CONTINUE TO MONITOR.
[2018-12-10] MEDS: PANTOPRAZOLE 40 MG TABLET.DR PO SCH (06:45)
[2018-12-10] MEDS: RIFAMPIN 300 MG CAPSULE PO SCH (06:45)
[2018-12-10 06:58] LABS: BASOPHILS % (AUTO) 0.8 % (0.0-2.0); EOSINOPHILS % (AUTO) 4.9 % (0.0-6.0); HEMATOCRIT 40 % (39-51); HEMOGLOBIN 13.2 g/dL (13.5-17.5); LYMPHOCYTES # (AUTO) 1.7 /CMM (0.8-4.8); LYMPHOCYTES % (AUTO) 27.6 % (20.0-44.0); MEAN CORPUSCULAR HGB CONC 33 g/dl (31.0-36.0); MEAN CORPUSCULAR VOLUME 96 fL (80-96); MONOCYTES # (AUTO) 0.7 /CMM (0.1-1.30); MONOCYTES % (AUTO) 10.8 % (2.0-12.0); NEUTROPHILS # (AUTO) 3.5 /CMM (1.8-8.9); NEUTROPHILS % (AUTO) 55.9 % (43.0-81.0); PLATELET COUNT (AUTO) 229 /CMM (150-450); RED BLOOD CELL COUNT(AUTO) 4.16 MIL/uL (4.5-6.0); WHITE BLOOD COUNT (AUTO) 6.3 K/uL (4.3-11.0)
[2018-12-10 07:29] LABS: CALCIUM, SERUM 8.9 mg/dL (8.5-10.1); CREATININE 1.3 mg/dL (0.6-1.3); MAGNESIUM 1.9 mg/dL (1.8-2.4); PHOSPHORUS 3.5 mg/dL (2.5-4.9)
--- NOTE | 2018-12-10 07:35 | NUR ---
MS/RN OPENING NOTES RECEIVED PATIENT IN BED SLEEPING COMFORTABLY. EASILY AROUSABLE. ABLE TO MAKE NEEDS KNOWN. PATIENT IS ALERT AND ORIENTED X3. NO PAIN OR ACUTE DISTRESS AT THIS TIME. RESPIRATION EVEN AND UNLABORED. SKIN IS DRY WARM TO TOUCH. PATIENT CONTINUES ON AIRBORNE ISOLATION PRECAUTIONS. 1 ON 1 SITTER ENFORCED, D/T PT ATTEMPT TO GET OF RM. PATIENT NOTED WITH LEFT AC SALINE LOCK GAUGE #20. INTACT AND PATENT. FLUSHING WELL. ALL NEEDS ANTICIPATED. CALL LIGHT WITHIN REACHED. BED LOCKED AND IN LOWEST POSITION. SAFETY MAINTAINED. WILL CONTINUE TO MONITOR CLOSELY.
[2018-12-10 08:00] VITALS: BP 115/66
[2018-12-10] MEDS: BLOOD SUGAR DIAGNOSTIC 1 EACH STRIP IN SCH ×4 (08:34→23:40)
[2018-12-10] MEDS: ISONIAZID (300 MG) 300 MG TABLET PO SCH (09:14)
[2018-12-10] MEDS: PYRIDOXINE HCL 50 MG TABLET PO SCH (09:14)
[2018-12-10] MEDS: PYRAZINAMIDE 500 MG TABLET PO SCH (09:14)
[2018-12-10] MEDS: FERROUS SULFATE (325 MG) 325 MG/TAB TABLET PO SCH ×2 (09:14→16:52)
[2018-12-10] MEDS: MEMANTINE HCL 5 MG TABLET PO SCH ×2 (09:14→16:52)
[2018-12-10] MEDS: ETHAMBUTOL HCL (400 MG) 400 MG TABLET PO SCH (09:14)
[2018-12-10] MEDS: ZINC SULFATE 220 MG CAPSULE PO SCH (09:18)
[2018-12-10] MEDS: Z GUARD REMEDY 2 OZ OINT TP SCH ×2 (09:18→21:41)
--- NOTE | 2018-12-10 09:31 | NUR ---
DISCUSSED WITH MD PATIENT UNABLE TO OBTAIN SPUTUM SECONDARY TO PATIENT DRY DESPITE INDUCED SPUTUM AND ALSO PATIENT UNCOOPERATIVE TO COUGH.ALSO HAD ATIVAN PRN YESTERDAY DUE TO AGITATION,WLL REQUEST PSYCHE EVAL FOR NOW. DR. MERAZ NOTIFIED AND FAXED FACESHEET TO [employer].
--- NOTE | 2018-12-10 09:34 | NUR ---
WILL CONTINUE SITTER FOR NOW FOR SAFETY.
[2018-12-10] MEDS: QUETIAPINE FUMARATE 25 MG TABLET PO SCH ×2 (12:15→16:52)
[2018-12-10 16:00] VITALS: BP 118/70
[2018-12-10] MEDS: LORAZEPAM 0.5 MG TABLET PO PRN (16:52)
--- NOTE | 2018-12-10 19:23 | NUR ---
MS/RN CLOSING NOTES PATIENT CONTINUES TO REMAIN IN STABLE CONDITION. PROVIDED COMFORT AND SAFETY. CONTINUES ON AIRBORNE ISOLATION PRECAUTIONS. 1 ON 1 SITTER DUE TO PATIENT ATTEMPTING TO GET OF ROOM. ALL NEEDS ANTICIPATED. KEPT CLEAN AND DRY. CALL LIGHT WITHIN REACHED. BED LOCKED AND IN LOWEST POSITION. SAFETY MAINTAINED. WILL CONTINUE TO MONITOR CLOSELY. ENDORSED TO PM NURSE FOR MAXX.
--- NOTE | 2018-12-10 19:30 | NUR ---
MS RN OPENING NOTES RESERVED PATIENT IN BED A/O X 3. PATIENT IS IN STABLE CONDITION. PATIENT IS ON AIRBORNE ISOLATION PRECAUTIONS. 1 ON 1 SITTER DUE TO PATIENT ATTEMPTING TO GET OF ROOM. IV ON LAC #20, NO S/S OD INFILTRATION. PATIENT ON RM, SATURATING WELL /O2 98%. CALL LIGHT WITHIN REACHED. BED LOCKED AND IN LOWEST POSITION. SAFETY MAINTAINED. WILL CONTINUE TO MONITOR CLOSELY.
[2018-12-10] MEDS: CEFEPIME 1 GM in IV D5W 50 ML IV SCH (20:53)
[2018-12-10 21:01] VITALS: BP 115/66
[2018-12-11 04:00] VITALS: BP 117/57
--- NOTE | 2018-12-11 06:33 | NUR ---
MS RN CLOSING NOTES PATIENT CONTINUES TO REMAIN IN STABLE CONDITION. PROVIDED COMFORT AND SAFETY THROUGHOUT THE INFORMATION TECHNOLOGY SPECIALIST. CONTINUES ON AIRBORNE ISOLATION PRECAUTIONS. 1 ON 1 SITTER DUE TO PATIENT ATTEMPTING TO GET OF ROOM. ON RM O2 98%. IV PATENT AND NO S/S OF INFILTRATION. ALL NEEDS ANTICIPATED. KEPT CLEAN AND DRY. CALL LIGHT WITHIN REACHED. BED LOCKED AND IN LOWEST POSITION. SAFETY MAINTAINED. ENDORSED TO AM NURSE FOR MAXX.
[2018-12-11] MEDS: PANTOPRAZOLE 40 MG TABLET.DR PO SCH (07:39)
[2018-12-11] MEDS: RIFAMPIN 300 MG CAPSULE PO SCH (07:40)
[2018-12-11] MEDS: LORAZEPAM 0.5 MG TABLET PO PRN (07:40)
[2018-12-11] MEDS: CEFEPIME 1 GM in IV D5W 50 ML IV SCH ×2 (07:40→20:27)
[2018-12-11 08:00] VITALS: BP 127/74
--- NOTE | 2018-12-11 08:00 | NUR ---
MS RN NOTES RECEIVED PT IN BED SITTING COMFORTABLY WITH NO SIGN AND SYMPTOMS OF SOB.PT ON AIRBORNE ISOLATION. SAFETY MEASURES OBSERVED, BED ON LOWEST POSITION LUCKED, SIDE RAILS UP X2. ON 1:1 SITTER DUE TO PATIENT ATTEMPTING TO GET OF ROOM. ON RM O2 99%. IV PATENT AND NO S/S OF INFILTRATION. ALL NEEDS ANTICIPATED. KEPT CLEAN AND DRY. CALL LIGHT WITHIN REACHED.
[2018-12-11] MEDS: BLOOD SUGAR DIAGNOSTIC 1 EACH STRIP IN SCH ×4 (08:03→21:00)
[2018-12-11] MEDS: ISONIAZID (300 MG) 300 MG TABLET PO SCH (08:57)
[2018-12-11] MEDS: ETHAMBUTOL HCL (400 MG) 400 MG TABLET PO SCH (08:57)
[2018-12-11] MEDS: ZINC SULFATE 220 MG CAPSULE PO SCH (08:57)
[2018-12-11] MEDS: MEMANTINE HCL 5 MG TABLET PO SCH ×2 (08:57→17:34)
[2018-12-11] MEDS: FERROUS SULFATE (325 MG) 325 MG/TAB TABLET PO SCH ×2 (08:58→17:34)
[2018-12-11] MEDS: PYRIDOXINE HCL 50 MG TABLET PO SCH (08:58)
[2018-12-11] MEDS: PYRAZINAMIDE 500 MG TABLET PO SCH (08:58)
[2018-12-11] MEDS: QUETIAPINE FUMARATE 25 MG TABLET PO SCH ×3 (09:01→17:34)
[2018-12-11] MEDS ORDERED: SODIUM CL FOR INHALATION 3% 15 ML VIAL.NEB IH ONE (15:30)
[2018-12-11 16:00] VITALS: BP 103/74
--- NOTE | 2018-12-11 16:54 | NUR ---
RT Pt is awake and alert, Hypertonic HHN tx given. Pt was unable to produce sputum sample. Pt refused oral suction and nasal suctioning. Yelitza charge nurse notified and aware. Addendum: 12/11/18 at 1655 by JOSH CRAVEN RT Amended: Links added.
--- NOTE | 2018-12-11 16:54 | NUR ---
patient calm ,unable to provide sputum despite induced with saline,patient refused suctioning. aware.
[2018-12-11] MEDS: Z GUARD REMEDY 2 OZ OINT TP SCH ×2 (19:00→21:01)
--- NOTE | 2018-12-11 19:13 | NUR ---
MS RN NOTES RECEIVED PT ON BED. A/O X3. ON ROOM AIR NO RESPIRATORY DISTRESS NOTED. IV ACCESS ON LAC G 20 SALINE LOCK. PT WITH 1 : 1 SITTER AND NEGATIVE PRESSURE ROOM ISOLATION OBSERVED. HEAD OF BED ELEVATED. SIDE RAILS UP. CALL LIGHT WITHIN REACH. BED ALARM ON. WILL CONTINUE TO MONITOR PT CLOSELY.
--- NOTE | 2018-12-11 19:28 | NUR ---
MS RN NOTES PT RESTING IN BED COMFORTABLY. ALERT ORIENTED TIME 3. HAD HIS DINNER 100%. NO SIGNS OF SOB, DISCOMFORT AND PAIN NOTED AT THIS TIME. SL FLUSHED WELL AND PATENT. ALL NEEDS ATTENDED. ALL SAFETY MEASURES OBSERVED, BED IN LOWEST POSITION AND LOCKED, SIDE RAILS UP X2. CALL LIGHT WITHIN REACH. SITTER AT BEDSIDE. WILL ENDORSE TO NEGATIVE SPOTTER NURSE.
[2018-12-11 20:00] VITALS: BP 110/77
[2018-12-12 04:03] VITALS: BP 115/69
--- NOTE | 2018-12-12 06:45 | NUR ---
MS RN NOTES PER PT HE WANTS TO TAKE HIS 0700 MEDS IN TOGETHER WITH OTHER MEDS. WILL ENDORSE TO THE AM NURSE FOR CONTINUITY OF CARE.
--- NOTE | 2018-12-12 06:54 | NUR ---
MS RN NOTES NO ACUTE CHANGES NOTED DURING THE SHIFT. PT UNABLE TO PRODUCE SPUTUM FOR CULTURE. WILL ENDORSE TO THE AM NURSE FOR CONTINUITY OF CARE.
[2018-12-12] MEDS: BLOOD SUGAR DIAGNOSTIC 1 EACH STRIP IN SCH ×4 (07:30→22:00)
--- NOTE | 2018-12-12 07:50 | NUR ---
RN OPENING NOTES RECEIVED PATIENT RESTING COMFORTABLY IN BED, DENIES ANY PAIN OR DISCOMFORT AT THIS TIME. HE IS AOX3, VERBAL, AND AMBULATORY WITH ASSIST. HE IS ON RA, TOLERATING WELL, SHOWS NO S/SX OF RESP DISTRESS OR SOB. HE IS IN A NEGATIVE PRESSURE ROOM FOR TB, ON AIRBORNE AND CONTACT ISOLATION. SITTER AT BEDSIDE. HE HAS A LAC 20 G SL, PATENT, INTACT. HE HAS SACRAL REDNESS, WILL REPOSITION AND OFFLOAD. SAFETY MEASURES HAVE BEEN IMPLEMENTED, CALL LIGHT IS WITHIN REACH, BED IS IN LOWEST AND LOCKED POSITION, SIDE RAILS UP X2, WILL CONTINUE TO MONITOR FOR ANY CHANGES
[2018-12-12 08:00] VITALS: BP 154/83
[2018-12-12] MEDS: PANTOPRAZOLE 40 MG TABLET.DR PO SCH (08:17)
[2018-12-12] MEDS: RIFAMPIN 300 MG CAPSULE PO SCH (08:17)
[2018-12-12] MEDS: ZINC SULFATE 220 MG CAPSULE PO SCH (08:20)
[2018-12-12] MEDS: CEFEPIME 1 GM in IV D5W 50 ML IV SCH ×2 (08:20→21:02)
[2018-12-12] MEDS: FERROUS SULFATE (325 MG) 325 MG/TAB TABLET PO SCH ×2 (08:20→16:49)
[2018-12-12] MEDS: ETHAMBUTOL HCL (400 MG) 400 MG TABLET PO SCH (08:21)
[2018-12-12] MEDS: QUETIAPINE FUMARATE 25 MG TABLET PO SCH ×3 (08:21→16:49)
[2018-12-12] MEDS: ISONIAZID (300 MG) 300 MG TABLET PO SCH (08:21)
[2018-12-12] MEDS: PYRAZINAMIDE 500 MG TABLET PO SCH (08:21)
[2018-12-12] MEDS: MEMANTINE HCL 5 MG TABLET PO SCH ×2 (08:21→16:49)
[2018-12-12] MEDS: PYRIDOXINE HCL 50 MG TABLET PO SCH (08:21)
[2018-12-12] MEDS: INSULIN REGULAR, HUMAN 100 UNIT/ML 3 ML VIAL SQ PRN ×2 (08:49→12:01)
[2018-12-12] MEDS: Z GUARD REMEDY 2 OZ OINT TP SCH ×2 (09:31→21:03)
--- NOTE | 2018-12-12 11:57 | NUR ---
PT BLOOD GLUCOSE IS CURRENTLY 73. GAVE HIM APPLE JUICE TO SIP ON, WILL CONTINUE TO MONITOR
--- NOTE | 2018-12-12 12:53 | NUR ---
BG IS NOW 107, PT IS IN STABLE CONDITION
--- NOTE | 2018-12-12 13:37 | NUR ---
PT IS REFUSING SPUTUM SAMPLE, WILL TRY AGAIN SOON
[2018-12-12 16:00] VITALS: BP 122/74
--- NOTE | 2018-12-12 19:19 | NUR ---
RN CLOSING NOTES PATIENT IS RESTING IN BED COMFORTABLY, DENIES ANY PAIN OR DISCOMFORT AT THIS TIME. NO ACUTE CHANGES OCCURRED DURING THE SHIFT. VITAL SIGNS ARE STABLE. PATIENT NEEDS HAVE BEEN MET. SAFETY MEASURES HAVE BEEN IMPLEMENTED, CALL LIGHT IS WITHIN REACH, BED IS IN LOWEST AND LOCKED POSITION, SIDE RAILS UP X2.
--- NOTE | 2018-12-12 19:21 | NUR ---
PATIENT HAS BEEN ENDORSED TO NIGHTSHIFT RN FOR CONTINUAL CARE.
[2018-12-12] MEDS: LORAZEPAM 0.5 MG TABLET PO PRN (21:03)
[2018-12-12 21:50] VITALS: BP 111/64
[2018-12-13 04:00] VITALS: BP 121/73
[2018-12-13] MEDS: RIFAMPIN 300 MG CAPSULE PO SCH (06:29)
[2018-12-13] MEDS: PANTOPRAZOLE 40 MG TABLET.DR PO SCH (07:27)
[2018-12-13] MEDS: CEFEPIME 1 GM in IV D5W 50 ML IV SCH ×2 (07:28→20:17)
[2018-12-13] MEDS: BLOOD SUGAR DIAGNOSTIC 1 EACH STRIP IN SCH ×4 (07:55→21:46)
[2018-12-13] MEDS: ISONIAZID (300 MG) 300 MG TABLET PO SCH (10:18)
[2018-12-13] MEDS: PYRAZINAMIDE 500 MG TABLET PO SCH (10:18)
[2018-12-13] MEDS: ZINC SULFATE 220 MG CAPSULE PO SCH (10:18)
[2018-12-13] MEDS: QUETIAPINE FUMARATE 25 MG TABLET PO SCH ×4 (10:19→18:05)
[2018-12-13] MEDS: PYRIDOXINE HCL 50 MG TABLET PO SCH (10:19)
[2018-12-13] MEDS: ETHAMBUTOL HCL (400 MG) 400 MG TABLET PO SCH (10:19)
[2018-12-13] MEDS: MEMANTINE HCL 5 MG TABLET PO SCH ×2 (10:19→18:05)
[2018-12-13] MEDS: FERROUS SULFATE (325 MG) 325 MG/TAB TABLET PO SCH ×2 (10:19→18:05)
[2018-12-13] MEDS: Z GUARD REMEDY 2 OZ OINT TP SCH ×2 (10:39→20:53)
[2018-12-13 12:00] VITALS: BP 100/62
[2018-12-13] MEDS: LORAZEPAM 0.5 MG TABLET PO PRN ×2 (14:21→21:36)
--- NOTE | 2018-12-13 15:28 | NUR ---
PATIENT AGITATED PULLING DOORS OPEN,WANTED TO GO HOME,EXPLAINED HE IS ON ISOLATION,DYANA BOYLE INITIATED CALLED 2X SINCE PATIENT INSISTING TO OPEN ISOLATION DOOR.REFUSING TO COOPERATE VERBALIZED "I WILL KICK YOUR BALLS",DYANA BOYLE TEAM AT BEDSIDE PRN ZYPREXA 5MG IM GIVEN ORDERED BY DR. MERAZ. STILL WANTED TO GO OUT DESPITE SHOT INSISTING HE IS NOT SICK .BILATERAL SOFT WRIST RESTRAINT INITIATED BY DYANA BOYLE TEAM.EXPLAINED TO PATIENT ONCE HE CALM DOWN AND COOPERATE STAYING IN ROOM WILL RELEASE RESTRAINT.SITTER AT BEDSIDE FOR SAFETY.
[2018-12-13] MEDS ORDERED: OLANZAPINE 10 MG VIAL IM ONE (15:30)
--- NOTE | 2018-12-13 16:10 | NUR ---
NO ACUTE DISTRESS POST ZYPREXA,BP 120/70,RR 20,DE 70 SAT RA 96%,WILL CONTINUE TO MONITOR.
--- NOTE | 2018-12-13 19:30 | NUR ---
MS RN OPENING NOTE RECEIVED PATIENT ALERT AND ORIENTED X3. NO SIGNS OF DISTRESS OR COMPLAINS OF ANY PAIN. PATIENT SEEMS AGITATED SAYING HE WANTS TO GO HOME. PATIENT KEEPS TRYING TO GET UP AND LEAVE THE ROOM. TOLD PATIENT IF HE CONTINUES TO TRY AND LEAVE THE RESTRAINTS WILL HAVE TO BE PUT ON AGAIN. PATIENT HAS SOFT WRIST RESTRAINT ON LEFT WRIST. IV ACCESS ON LAC #20G PATENT AND FLUSHING WELL. PATIENT ON ROOM AIR WITH NO SIGNS OF SOB. ALL SAFETY PRECAUTIONS ARE APPLIED. BED IS LOW, BED ALARM ON, SIDE RAILS UP X3, AND CALL LIGHT WITHIN REACH. 1 TO 1 CARE. WILL CONTINUE TO MONITOR.
[2018-12-13 20:00] VITALS: BP 122/59
--- NOTE | 2018-12-13 20:17 | NUR ---
MS RN NOTES CLOSING PT IN BED SITTING COMFORTABLY. NO SIGNS OF SOB NOTED AT THIS TIME. ALL NEEDS ATTENDED. SAFETY MEASURES OBSERVED. BED LOCKED IN LOWEST POSITION, CALL LIGHT IN REACH. [place] IV SITE FLUSHED WELL PATENT. WILL ENDORSE TO HOUSE SUPERINTENDENT NURSE.
[2018-12-14 04:00] VITALS: BP 122/83
[2018-12-14] MEDS: RIFAMPIN 300 MG CAPSULE PO SCH (06:42)
--- NOTE | 2018-12-14 07:10 | NUR ---
MS RN CLOSING NOTES PATIENT RESTING IN BED WITH NO SIGNS OF SOB OR ANY DISTRESS. ISOLATION PRECAUTIONS APPLIED WITH SITTER NEAR BY. PATIENT DENIES ANY TYPE OF PAIN. ALL SAFETY PRECAUTIONS APPLIED. BED IS LOW, SIDE RAILS UP X2, CALL LIGHT WITHIN REACH, AND BED ALARM ON. ENDORSED PATIENT TO MORNING RN.
--- NOTE | 2018-12-14 07:35 | NUR ---
MS/RN OPENING NOTES RECEIVED PATIENT IN BED SLEEPING COMFORTABLY. EASILY AROUSABLE. PATIENT ALERT AND ORIENTED X2. ABLE TO MAKE NEEDS KNOWN. NO PAIN OR ACUTE DISTRESS AT THIS TIME. RESPIRATION EVEN AND UNLABORED. SKIN IS DRY WARM TO TOUCH. PATIENT CALM AND COOPERATIVE AT THE MOMENT. NOTED WITH IV ACCESS ON LAC #20G PATENT AND FLUSHING WELL. ALL NEEDS ANTICIPATED. CALL LIGHT WITHIN REACHED. BED LOCKED AND IN LOWEST POSITION. SAFETY MAINTAINED. PLAN OF CARE DISCUSSED WITH PATIENT. WILL CONTINUE TO MONITOR CLOSELY. 1 ON 1 SITTER CLOSE TO ROOM AT ALL TIMES.
[2018-12-14 08:00] VITALS: BP 110/64
[2018-12-14] MEDS: CEFEPIME 1 GM in IV D5W 50 ML IV SCH ×2 (08:15→20:11)
[2018-12-14] MEDS: PYRAZINAMIDE 500 MG TABLET PO SCH (08:16)
[2018-12-14] MEDS: ETHAMBUTOL HCL (400 MG) 400 MG TABLET PO SCH (08:16)
[2018-12-14] MEDS: MEMANTINE HCL 5 MG TABLET PO SCH ×2 (08:16→17:10)
[2018-12-14] MEDS: FERROUS SULFATE (325 MG) 325 MG/TAB TABLET PO SCH ×2 (08:16→17:10)
[2018-12-14] MEDS: ZINC SULFATE 220 MG CAPSULE PO SCH (08:16)
[2018-12-14] MEDS: PYRIDOXINE HCL 50 MG TABLET PO SCH (08:16)
[2018-12-14] MEDS: QUETIAPINE FUMARATE 25 MG TABLET PO SCH ×3 (08:16→17:10)
[2018-12-14] MEDS: ISONIAZID (300 MG) 300 MG TABLET PO SCH (08:16)
[2018-12-14] MEDS: PANTOPRAZOLE 40 MG TABLET.DR PO SCH (08:16)
[2018-12-14] MEDS: LORAZEPAM 0.5 MG TABLET PO PRN ×3 (08:17→17:10)
[2018-12-14] MEDS: BLOOD SUGAR DIAGNOSTIC 1 EACH STRIP IN SCH ×4 (08:35→22:05)
[2018-12-14] MEDS: Z GUARD REMEDY 2 OZ OINT TP SCH ×2 (08:54→20:38)
[2018-12-14] MEDS: INSULIN REGULAR, HUMAN 100 UNIT/ML 3 ML VIAL SQ PRN (12:28)
[2018-12-14 16:00] VITALS: BP 115/68
--- NOTE | 2018-12-14 18:41 | NUR ---
MS/RN CLOSING NOTES PATIENT CONTINUES TO REMAIN IN STABLE CONDITION THROUGHOUT THE SHIFT. PROVIDED COMFORT AND SAFETY. 1 ON 1 SITTER NEXT TO ROOM AT ALL TIMES. PATIENT CALM AND COOPERATIVE AT THE MOMENT. PATIENT ABLE TO TOLERATE MEALS AND MEDS WELL. NOTED WITH IV ACCESS ON LAC #20G PATENT AND FLUSHING WELL. ALL NEEDS ANTICIPATED. CALL LIGHT WITHIN REACHED. BED LOCKED AND IN LOWEST POSITION. SAFETY MAINTAINED. WILL CONTINUE TO MONITOR CLOSELY. ENDORSED TO PM NURSE FOR MAXX.
--- NOTE | 2018-12-14 19:00 | NUR ---
MS RN OPENING NOTES Received patient A/O x 2-3, awake on supine position on bed. On RA, no SOB/respiratory distress noted at this time. Patient noted ambulatory to bathroom independently. With sitter at bedside at all times. With peripheral IV LAC G#18, SL, patent, no s/sx of infiltration noted. Discussed with patient the POC for this shift. Patient refused taking photos at this time. Discussed to patient the importance of the intervention, patient verbalized understanding but insisted to refused. Kept in negative pressure room for airborne and contact precautions for TB. Kept patient on bed clean, dry and comfortable. Kept bed low and locked. Call light within easy reach. Will continue to monitor accordingly.
[2018-12-14 20:00] VITALS: BP 137/62
[2018-12-15 04:00] VITALS: BP 90/56
[2018-12-15] MEDS: RIFAMPIN 300 MG CAPSULE PO SCH (06:01)
[2018-12-15] MEDS: BLOOD SUGAR DIAGNOSTIC 1 EACH STRIP IN SCH ×4 (06:30→22:23)
[2018-12-15 06:37] VITALS: BP 111/76
--- NOTE | 2018-12-15 06:58 | NUR ---
MS RN CLOSING NOTES Patient asleep, easily awaken. On RA, no SOB/respiratory distress noted. Ambulatory to bathroom with stand by assistance at all time. With 1:1 sitter at bedside at all times. No new complaints made. All nursing needs attended. Due meds given as ordered, no ASE noted. Kept on bed clean, dry and comfortable. Call light within easy reach. On fall precautions. Endorsed to the next shift.
[2018-12-15 08:00] VITALS: BP 107/68
--- NOTE | 2018-12-15 08:00 | NUR ---
RN NOTES RECEIVED PATIENT IN BED, A/A/0 X4, ABLE TO CONVERSE, ON ROOM AIR, NOT ON ANY FORM OF DISTRESS, BREATHING UNLABORED, NO COMPLAINTS OF PAIN AT THIS TIME. IV SITE NOTED ON THE R AC, G [address], DRESSING DRY AND INTACT, FLUSHES WELL, SALINE LOCK. PATIENT ENCOURAGE TO VERBALIZE FEELINGS AND CONCERNS, SAFETY MEASURES OBSERVED AND MAINTAINED, CALL LIGHT PLACED WITHIN REACH, PATIENT REMINDED ON ISOLATION STATUS, SITTER AT ANTEROOM, WILL CONTINUE TO MONITOR PATIENT AND ANTICIPATE NEEDS
[2018-12-15] MEDS: PANTOPRAZOLE 40 MG TABLET.DR PO SCH (08:21)
[2018-12-15] MEDS: CEFEPIME 1 GM in IV D5W 50 ML IV SCH ×2 (08:23→20:27)
[2018-12-15] MEDS: ISONIAZID (300 MG) 300 MG TABLET PO SCH (08:24)
[2018-12-15] MEDS: QUETIAPINE FUMARATE 25 MG TABLET PO SCH ×3 (08:24→17:20)
[2018-12-15] MEDS: ZINC SULFATE 220 MG CAPSULE PO SCH (08:24)
[2018-12-15] MEDS: PYRAZINAMIDE 500 MG TABLET PO SCH (08:24)
[2018-12-15] MEDS: PYRIDOXINE HCL 50 MG TABLET PO SCH (08:24)
[2018-12-15] MEDS: FERROUS SULFATE (325 MG) 325 MG/TAB TABLET PO SCH ×2 (08:24→17:20)
[2018-12-15] MEDS: MEMANTINE HCL 5 MG TABLET PO SCH ×2 (08:24→17:20)
[2018-12-15] MEDS: ETHAMBUTOL HCL (400 MG) 400 MG TABLET PO SCH (08:24)
[2018-12-15] MEDS: Z GUARD REMEDY 2 OZ OINT TP SCH ×2 (10:42→20:46)
[2018-12-15] MEDS: LORAZEPAM 0.5 MG TABLET PO PRN (11:04)
[2018-12-15 12:00] VITALS: BP 115/68
--- NOTE | 2018-12-15 19:26 | NUR ---
RN NOTES ENDORSED FOR CONTINUITY OF CARE. NOT ON ANY FORM OF DISTRESS. ALL NURSING NEEDS ATTENDED AND MET. SAFETY MEASURES AND CALL LIGHT IN PLACE AT ALL TIMES
--- NOTE | 2018-12-15 19:30 | NUR ---
MS RN OPENING NOTES RECEIVED PATIENT IN BED AWAKE, RESTING COMFORTABLY. PATIENT ALERT AND ORIENTED X2. ABLE TO MAKE NEEDS KNOWN. NO PAIN OR ACUTE DISTRESS AT THIS TIME. RESPIRATION EVEN AND UNLABORED. SKIN IS DRY WARM TO TOUCH. PATIENT CALM AND COOPERATIVE AT THE MOMENT. IV ACCESS ON LAC #20G PATENT AND FLUSHING WELL. CALL LIGHT WITHIN REACHED. BED LOCKED AND IN LOWEST POSITION. SAFETY MAINTAINED. WILL CONTINUE TO MONITOR CLOSELY. 1 ON 1 SITTER CLOSE TO ROOM AT ALL TIMES.
[2018-12-15 20:28] VITALS: BP 102/67
[2018-12-16 04:00] VITALS: BP 111/78
--- NOTE | 2018-12-16 06:49 | NUR ---
MS RN CLOSING NOTES PATIENT IN BED AWAKE, RESTING COMFORTABLY. PATIENT ALERT AND ORIENTED X2. ABLE TO MAKE NEEDS KNOWN. NO PAIN OR ACUTE DISTRESS AT THIS TIME. RESPIRATION EVEN AND UNLABORED. SKIN IS DRY WARM TO TOUCH. PATIENT WAS CALM AND COOPERATIVE ALL NIGHT. IV ACCESS ON LAC #20G PATENT AND FLUSHING WELL. 1 ON 1 SITTER CLOSE TO ROOM AT ALL TIMES. CALL LIGHT WITHIN REACHED. BED LOCKED AND IN LOWEST POSITION. SAFETY MAINTAINED. WILL ENDORSE THE PATIENT TO AM SHIFT RN FOR MAXX. MS RN OPENING NOTES
--- NOTE | 2018-12-16 07:10 | NUR ---
RN OPENING NOTES RECEIVED PATIENT RESTING IN BED COMFORTABLY, DENIES ANY PAIN OR DISCOMFORT AT THIS TIME. HE IS AOX4, VERBAL AND AMBULATORY. HE IS ON RA, TOLERATING WELL, SHOWS NO S/SX OF RESP DISTRESS OR SOB. SKIN IS INTACT. SAFETY MEASURES HAVE BEEN IMPLEMENTED, CALL LIGHT IS WITHIN REACH, BED IS IN LOWEST AND LOCKED POSITION, SIDE RAILS UP X2, WILL CONTINUE TO MONITOR FOR ANY CHANGES.
[2018-12-16] MEDS: PANTOPRAZOLE 40 MG TABLET.DR PO SCH (07:39)
[2018-12-16] MEDS: RIFAMPIN 300 MG CAPSULE PO SCH (07:41)
[2018-12-16] MEDS: BLOOD SUGAR DIAGNOSTIC 1 EACH STRIP IN SCH ×4 (07:54→22:56)
[2018-12-16 08:00] VITALS: BP 126/68
[2018-12-16] MEDS: CEFEPIME 1 GM in IV D5W 50 ML IV SCH ×2 (08:30→20:39)
[2018-12-16] MEDS: PYRAZINAMIDE 500 MG TABLET PO SCH (08:31)
[2018-12-16] MEDS: PYRIDOXINE HCL 50 MG TABLET PO SCH (08:31)
[2018-12-16] MEDS: MEMANTINE HCL 5 MG TABLET PO SCH ×2 (08:31→17:06)
[2018-12-16] MEDS: QUETIAPINE FUMARATE 25 MG TABLET PO SCH ×3 (08:32→17:06)
[2018-12-16] MEDS: ISONIAZID (300 MG) 300 MG TABLET PO SCH (08:32)
[2018-12-16] MEDS: FERROUS SULFATE (325 MG) 325 MG/TAB TABLET PO SCH ×2 (08:32→17:06)
[2018-12-16] MEDS: ETHAMBUTOL HCL (400 MG) 400 MG TABLET PO SCH (08:32)
[2018-12-16] MEDS: Z GUARD REMEDY 2 OZ OINT TP SCH ×2 (08:32→21:03)
[2018-12-16] MEDS: ZINC SULFATE 220 MG CAPSULE PO SCH (08:32)
[2018-12-16 13:31] LABS: CALCIUM, SERUM 8.9 mg/dL (8.5-10.1); CREATININE 1.1 mg/dL (0.6-1.3); POTASSIUM 4.2 mmol/L (3.5-5.1)
[2018-12-16 16:00] VITALS: BP 130/68
--- NOTE | 2018-12-16 19:23 | NUR ---
RN CLOSING NOTES PATIENT IS RESTING COMFORTABLY AT THIS TIME, DENIES ANY PAIN OR DISCOMFORT. PT NEEDS HAVE BEEN MET. HE IS IN STABLE CONDITION. TOLERATING RA WELL, NO SOB OR RESP DISTRESS. VITAL SIGNS STABLE. SAFETY MEASURES HAVE BEEN IMPLEMENTED, CALL LIGHT IS WITHIN REACH, BED IS IN LOWEST AND LOCKED POSITION, SIDE RAILS UP X2, PT HAS BEEN ENDORSED TO NIGHTSHIFT RN FOR CONTINUITY OF CARE.
--- NOTE | 2018-12-16 19:41 | NUR ---
MS RN OPENING NOTES, RECEIVED PATIENT IN BED, RESTING COMFORTABLY, DENIES ANY PAIN OR DISCOMFORT. HE IS IN STABLE CONDITION. TOLERATING RA WELL, NO SOB OR RESP DISTRESS NOTED AT THIS TIME. IV AT LFA #22, FLUSHED WELL AND NO S/S OF INFILTRATION. SAFETY MEASURES HAVE BEEN IMPLEMENTED, CALL LIGHT IS WITHIN REACH, BED IS IN LOWEST AND LOCKED POSITION, SIDE RAILS UP X2,
[2018-12-16 20:00] VITALS: BP 128/67
[2018-12-17 00:07] VITALS: BP 128/67
--- NOTE | 2018-12-17 06:35 | NUR ---
MS RN CLOSING NOTES PATIENT IS RESTING COMFORTABLY AT THIS TIME, DENIES ANY PAIN OR DISCOMFORT. PT NEEDS HAVE BEEN MET. HE IS IN STABLE CONDITION. TOLERATING RA WELL, NO SOB OR RESP DISTRESS. VITAL SIGNS STABLE. SAFETY MEASURES HAVE BEEN IMPLEMENTED, CALL LIGHT IS WITHIN REACH, BED IS IN LOWEST AND LOCKED POSITION, SIDE RAILS UP X2, PATIENT WILL BE ENDORSED TO AM RN FOR MAXX.
[2018-12-17] MEDS: RIFAMPIN 300 MG CAPSULE PO SCH (06:56)
[2018-12-17 08:00] VITALS: BP 123/75
[2018-12-17] MEDS: PANTOPRAZOLE 40 MG TABLET.DR PO SCH (08:06)
[2018-12-17] MEDS: BLOOD SUGAR DIAGNOSTIC 1 EACH STRIP IN SCH ×4 (08:07→21:10)
--- NOTE | 2018-12-17 08:29 | NUR ---
MS RN NOTES (OPENING) RECEIVED PT SITTING IN BED COMFORTABLY, A/O X3. NO SIGNS OF SOB NOTED AT THIS TIME. LFA 22G INTACT FLUSHED WELL. ALL SAFETY MEASURES OBSERVED. BED AT THE LOWEST POSITION AND LOCKED. CALL LIGHT IN REACH. WILL CONTINUE TO MONITOR.
[2018-12-17] MEDS: Z GUARD REMEDY 2 OZ OINT TP SCH ×2 (09:00→21:10)
[2018-12-17 09:28] LABS: BASOPHILS # (AUTO) 0.1 /CMM (0.0-0.2); EOSINOPHILS % (AUTO) 8.1 % (0.0-6.0); HEMATOCRIT 40 % (39-51); HEMOGLOBIN 13.1 g/dL (13.5-17.5); LYMPHOCYTES # (AUTO) 1.8 /CMM (0.8-4.8); LYMPHOCYTES % (AUTO) 34.7 % (20.0-44.0); MEAN CORPUSCULAR HGB CONC 33 g/dl (31.0-36.0); MEAN CORPUSCULAR VOLUME 97 fL (80-96); MONOCYTES # (AUTO) 0.4 /CMM (0.1-1.30); MONOCYTES % (AUTO) 8.3 % (2.0-12.0); NEUTROPHILS # (AUTO) 2.4 /CMM (1.8-8.9); NEUTROPHILS % (AUTO) 47.9 % (43.0-81.0); PLATELET COUNT (AUTO) 197 /CMM (150-450); RED BLOOD CELL COUNT(AUTO) 4.07 MIL/uL (4.5-6.0); WHITE BLOOD COUNT (AUTO) 5.1 K/uL (4.3-11.0)
[2018-12-17 09:44] LABS: CALCIUM, SERUM 8.8 mg/dL (8.5-10.1); CREATININE 1.2 mg/dL (0.6-1.3); TOTAL PROTEIN, SERUM 7.3 g/dL (6.4-8.2)
[2018-12-17 09:58] LABS: ALBUMIN 2.7 g/dL (3.4-5.0); BILIRUBIN,DIRECT 0.2 mg/dL (0.0-0.2); BILIRUBIN,TOTAL 0.3 mg/dL (0.2-1.0); TOTAL PROTEIN, SERUM 7.2 g/dL (6.4-8.2)
[2018-12-17] MEDS: MEMANTINE HCL 5 MG TABLET PO SCH ×2 (10:06→16:51)
[2018-12-17] MEDS: QUETIAPINE FUMARATE 25 MG TABLET PO SCH ×3 (10:06→16:51)
[2018-12-17] MEDS: ETHAMBUTOL HCL (400 MG) 400 MG TABLET PO SCH (10:06)
[2018-12-17] MEDS: PYRAZINAMIDE 500 MG TABLET PO SCH (10:06)
[2018-12-17] MEDS: PYRIDOXINE HCL 50 MG TABLET PO SCH (10:07)
[2018-12-17] MEDS: ISONIAZID (300 MG) 300 MG TABLET PO SCH (10:07)
[2018-12-17] MEDS: LORAZEPAM 0.5 MG TABLET PO PRN (10:07)
[2018-12-17] MEDS: FERROUS SULFATE (325 MG) 325 MG/TAB TABLET PO SCH ×2 (10:07→16:51)
[2018-12-17] MEDS: ZINC SULFATE 220 MG CAPSULE PO SCH (10:10)
[2018-12-17 16:00] VITALS: BP 144/78
--- NOTE | 2018-12-17 17:20 | NUR ---
RT ATTEMPTED TO GET SPUTUM SAMPLE PT HAS CLEAR BREATH SOUNDS NOTHING TO COUGH UP OR SX UPON COMMERCIAL TELLER INFORMED
--- NOTE | 2018-12-17 17:30 | NUR ---
MS RN NOTES HAD A CONVERSATION WITH [facility] NURSE ABOUT THE SPUTUM SAMPLE. INFORMED RT FOR THE SPUTUM CULTURE.
--- NOTE | 2018-12-17 19:51 | NUR ---
MS RN CLOSING NOTES PATIENT SITTING IN BED, RESTING COMFORTABLY, DENIES ANY PAIN OR DISCOMFORT. HE IS IN STABLE. NO SOB OR RESP DISTRESS NOTED AT THIS TIME. IV AT LFA #22, FLUSHED WELL AND PATENT. SAFETY MEASURES HAVE BEEN IMPLEMENTED, CALL LIGHT IS WITHIN REACH, BED IS IN LOWEST AND LOCKED POSITION, SIDE RAILS UP X2. ENDORSED TO INTERNAL COMMUNICATIONS WRITER NURSE.
[2018-12-17 20:00] VITALS: BP 115/79
[2018-12-18 04:00] VITALS: BP 123/75
[2018-12-18 06:31] LABS: CALCIUM, SERUM 9.1 mg/dL (8.5-10.1); CREATININE 1.2 mg/dL (0.6-1.3); POTASSIUM 4.2 mmol/L (3.5-5.1)
[2018-12-18 06:41] LABS: ALBUMIN 2.8 g/dL (3.4-5.0); BILIRUBIN,DIRECT 0.1 mg/dL (0.0-0.2); BILIRUBIN,TOTAL 0.1 mg/dL (0.2-1.0); MAGNESIUM 1.7 mg/dL (1.8-2.4); PHOSPHORUS 3.4 mg/dL (2.5-4.9); TOTAL PROTEIN, SERUM 7.4 g/dL (6.4-8.2)
[2018-12-18] MEDS: RIFAMPIN 300 MG CAPSULE PO SCH (07:49)
[2018-12-18] MEDS: PANTOPRAZOLE 40 MG TABLET.DR PO SCH (07:49)
[2018-12-18 08:00] VITALS: BP_SYST 123; BP_SYST 138; BP_DIAS 74; BP_DIAS 75
[2018-12-18] MEDS: BLOOD SUGAR DIAGNOSTIC 1 EACH STRIP IN SCH ×4 (08:02→21:42)
[2018-12-18 08:34] LABS: BASOPHILS # (AUTO) 0.1 /CMM (0.0-0.2); BASOPHILS % (AUTO) 1.1 % (0.0-2.0); EOSINOPHILS % (AUTO) 6.6 % (0.0-6.0); HEMATOCRIT 39 % (39-51); LYMPHOCYTES # (AUTO) 1.9 /CMM (0.8-4.8); LYMPHOCYTES % (AUTO) 31.9 % (20.0-44.0); MEAN CORPUSCULAR HGB CONC 33 g/dl (31.0-36.0); MEAN CORPUSCULAR VOLUME 97 fL (80-96); MONOCYTES # (AUTO) 0.7 /CMM (0.1-1.30); MONOCYTES % (AUTO) 11.6 % (2.0-12.0); NEUTROPHILS # (AUTO) 2.9 /CMM (1.8-8.9); NEUTROPHILS % (AUTO) 48.8 % (43.0-81.0); PLATELET COUNT (AUTO) 147 /CMM (150-450); RED BLOOD CELL COUNT(AUTO) 4.04 MIL/uL (4.5-6.0); WHITE BLOOD COUNT (AUTO) 5.8 K/uL (4.3-11.0)
[2018-12-18] MEDS: FERROUS SULFATE (325 MG) 325 MG/TAB TABLET PO SCH ×2 (08:43→16:13)
[2018-12-18] MEDS: ISONIAZID (300 MG) 300 MG TABLET PO SCH (08:43)
[2018-12-18] MEDS: ETHAMBUTOL HCL (400 MG) 400 MG TABLET PO SCH (08:44)
[2018-12-18] MEDS: PYRIDOXINE HCL 50 MG TABLET PO SCH (08:44)
[2018-12-18] MEDS: ZINC SULFATE 220 MG CAPSULE PO SCH (08:44)
[2018-12-18] MEDS: LORAZEPAM 0.5 MG TABLET PO PRN ×2 (08:44→16:13)
[2018-12-18] MEDS: MEMANTINE HCL 5 MG TABLET PO SCH ×2 (08:45→16:13)
[2018-12-18] MEDS: QUETIAPINE FUMARATE 25 MG TABLET PO SCH ×3 (08:45→16:13)
[2018-12-18] MEDS: PYRAZINAMIDE 500 MG TABLET PO SCH (08:45)
[2018-12-18] MEDS: Z GUARD REMEDY 2 OZ OINT TP SCH ×2 (09:36→20:06)
[2018-12-18] MEDS ORDERED: SODIUM CL FOR INHALATION 3% 15 ML VIAL.NEB IH ONE (10:00)
[2018-12-18] MEDS ORDERED: IV Sodium Chloride 3% 500 ML 500 ML IV ONE (10:00)
[2018-12-18] MEDS: Magnesium 1GM/D5W 100ML PREMIX 100 ML IV SCH ×2 (10:30→12:14)
--- NOTE | 2018-12-18 10:49 | NUR ---
ABLE TO OBTAIN SPUTUM POST HYPERTONIC SOLUTION INH AND RT SUCTIONED PATIENT. SPECIMEN SEND TO LAB ,JENNIFER FROM IN[facility] CONTROL NOTIFIED.
[2018-12-18 16:00] VITALS: BP 131/83
[2018-12-18] MEDS: INSULIN REGULAR, HUMAN 100 UNIT/ML 3 ML VIAL SQ PRN (17:39)
--- NOTE | 2018-12-18 18:36 | NUR ---
ms rn notes pt in isolation precautions; vss. collected 2 sputum cultures. will endorse to pm nurse to collect one more at 0230. pt tolerated procedure. poc discussed with , jens. pt stable. no significant changes
[2018-12-18 20:00] VITALS: BP 123/78
--- NOTE | 2018-12-19 02:30 | NUR ---
MS/MEDIA/INSTRUCTIONAL DESIGNER [employer] SPUTUM COLLECTED BY RT INDUCED. PT TOLERATED WELL. WILL CONTINUE TO MONITOR.
[2018-12-19 04:03] VITALS: BP 130/74
[2018-12-19 06:44] LABS: CALCIUM, SERUM 8.8 mg/dL (8.5-10.1); MAGNESIUM 1.9 mg/dL (1.8-2.4); POTASSIUM 4.4 mmol/L (3.5-5.1)
--- NOTE | 2018-12-19 07:50 | NUR ---
MS/RN OPENING NOTES RECEIVED PATIENT IN BED AWAKE, ALERT AND RESTING COMFORTABLY. ABLE TO MAKE NEEDS KNOWN. NO PAIN OR ACUTE DISTRESS AT THIS TIME. RESPIRATION EVEN AND UNLABORED. SKIN IS DRY WARM TO TOUCH. ISOLATION MAINTAINED. 1 ON 1 SITTER AT ALL TIME. PATIENT REMAINS CALM AND COOPERATIVE AT THE MOMENT. PATIENT NOTED WITH LFA 22G INTACT FLUSHED WELL. INTACT AND PATENT. ALL NEEDS ANTICIPATED. KEPT CLEAN AND DRY. CALL LIGHT WITHIN REACHED. BED LOCKED AND IN LOWEST POSITION. SAFETY MAINTAINED. PLAN OF CARE DISCUSSED WITH PATIENT. WILL CONTINUE TO MONITOR CLOSELY.
[2018-12-19 08:00] VITALS: BP 111/75
[2018-12-19] MEDS: BLOOD SUGAR DIAGNOSTIC 1 EACH STRIP IN SCH ×4 (08:04→22:17)
[2018-12-19] MEDS: PANTOPRAZOLE 40 MG TABLET.DR PO SCH (08:29)
[2018-12-19] MEDS: RIFAMPIN 300 MG CAPSULE PO SCH (08:33)
[2018-12-19] MEDS: PYRIDOXINE HCL 50 MG TABLET PO SCH (09:14)
[2018-12-19] MEDS: MEMANTINE HCL 5 MG TABLET PO SCH ×2 (09:14→16:29)
[2018-12-19] MEDS: ETHAMBUTOL HCL (400 MG) 400 MG TABLET PO SCH (09:14)
[2018-12-19] MEDS: QUETIAPINE FUMARATE 25 MG TABLET PO SCH ×3 (09:14→16:29)
[2018-12-19] MEDS: PYRAZINAMIDE 500 MG TABLET PO SCH (09:14)
[2018-12-19] MEDS: FERROUS SULFATE (325 MG) 325 MG/TAB TABLET PO SCH ×2 (09:14→16:29)
[2018-12-19] MEDS: ZINC SULFATE 220 MG CAPSULE PO SCH (09:14)
[2018-12-19] MEDS: ISONIAZID (300 MG) 300 MG TABLET PO SCH (09:15)
[2018-12-19] MEDS: Z GUARD REMEDY 2 OZ OINT TP SCH ×2 (09:15→22:16)
[2018-12-19 16:00] VITALS: BP 123/88
--- NOTE | 2018-12-19 19:11 | NUR ---
MS/RN CLOSING NOTES PATIENT CONTINUES TO REMAIN IN STABLE CONDITION THROUGHOUT THE SHIFT. PROVIDED COMFORT AND SAFETY. 1 ON 1 SITTER AT ALL TIME. PATIENT REMAINS CALM AND COOPERATIVE DURING THE SHIFT. STILL AWAITING RESULTS FOR THE [employer]. PATIENT NOTED WITH LFA 22G INTACT FLUSHED WELL. INTACT AND PATENT. ALL NEEDS ANTICIPATED. KEPT CLEAN AND DRY. CALL LIGHT WITHIN REACHED. BED LOCKED AND IN LOWEST POSITION. SAFETY MAINTAINED. WILL CONTINUE TO MONITOR CLOSELY. ENDORSED TO PM SHIFT FOR MAXX.
[2018-12-19 20:00] VITALS: BP 103/66
--- NOTE | 2018-12-19 20:28 | NUR ---
RN OPENING NOTES RECEIVED REPORT FROM LILLIAN GREEN. PATIENT A/A/O X3, ABLE TO VERBALIZE NEEDS. BREATHING EVEN & UNLABORED, TOLERATING ROOM AIR. DENIES ANY SOB OR DIFFICULTY. RADIAL PULSES PRESENT. LEFT FOREARM IV #22 INTACT & PATENT, SALINE LOCKED. DENIES ANY PAIN OR DISCOMFORT @ THIS TIME. ABLE TO AMBULATE INDEPENDENTLY W/ STEADY GAIT BUT W/ SITTER @ BEDSIDE TO PREVENT PATIENT FROM OPENING ROOM DOOR D/T AIRBORNE PRECAUTIONS. SAFETY MEASURES MAINTAINED W/ SIDE RAILS UP & BED IN LOW, LOCKED POSITION. INSTRUCTED TO USE CALL LIGHT FOR ASSISTANCE. WILL CONTINUE TO MONITOR.
[2018-12-19] MEDS: INSULIN REGULAR, HUMAN 100 UNIT/ML 3 ML VIAL SQ PRN (22:17)
[2018-12-20 04:00] VITALS: BP 106/52
[2018-12-20] MEDS: RIFAMPIN 300 MG CAPSULE PO SCH (07:05)
[2018-12-20] MEDS: PANTOPRAZOLE 40 MG TABLET.DR PO SCH (07:05)
--- NOTE | 2018-12-20 07:20 | NUR ---
MS/RN OPENING NOTES RECEIVED PATIENT IN BED RESTING COMFORTABLY. ABLE TO MAKE NEEDS KNOWN. NO PAIN OR ACUTE DISTRESS AT THIS TIME. RESPIRATION EVEN AND UNLABORED. SKIN IS DRY WARM TO TOUCH. ISOLATION MAINTAINED. PATIENT REMAINS CALM AND COOPERATIVE AT THIS TIME. PATIENT NOTED WITH LFA 22G INTACT FLUSHED WELL. INTACT AND PATENT. ALL NEEDS ANTICIPATED. KEPT CLEAN AND DRY. CALL LIGHT WITHIN REACHED. BED LOCKED AND IN LOWEST POSITION. SAFETY MAINTAINED. PLAN OF CARE DISCUSSED WITH PATIENT. WILL CONTINUE TO MONITOR CLOSELY. 1 ON 1 SITTER AT ALL TIMES.
[2018-12-20 08:00] VITALS: BP 119/73
[2018-12-20] MEDS: BLOOD SUGAR DIAGNOSTIC 1 EACH STRIP IN SCH ×4 (08:16→21:35)
[2018-12-20] MEDS: ISONIAZID (300 MG) 300 MG TABLET PO SCH (08:26)
[2018-12-20] MEDS: MEMANTINE HCL 5 MG TABLET PO SCH ×2 (08:26→16:08)
[2018-12-20] MEDS: FERROUS SULFATE (325 MG) 325 MG/TAB TABLET PO SCH ×2 (08:26→16:08)
[2018-12-20] MEDS: QUETIAPINE FUMARATE 25 MG TABLET PO SCH ×3 (08:26→16:08)
[2018-12-20] MEDS: PYRAZINAMIDE 500 MG TABLET PO SCH (08:26)
[2018-12-20] MEDS: PYRIDOXINE HCL 50 MG TABLET PO SCH (08:26)
[2018-12-20] MEDS: ETHAMBUTOL HCL (400 MG) 400 MG TABLET PO SCH (08:27)
[2018-12-20] MEDS: ZINC SULFATE 220 MG CAPSULE PO SCH (08:30)
[2018-12-20] MEDS: Z GUARD REMEDY 2 OZ OINT TP SCH ×2 (08:30→21:34)
[2018-12-20] MEDS: INSULIN REGULAR, HUMAN 100 UNIT/ML 3 ML VIAL SQ PRN ×2 (08:36→21:35)
[2018-12-20 16:00] VITALS: BP 106/74
--- NOTE | 2018-12-20 19:00 | NUR ---
MS/RN CLOSING NOTES PATIENT CONTINUES TO REMAIN IN STABLE CONDITION THROUGHOUT THE SHIFT. PROVIDED COMFORT AND SAFETY. ISOLATION MAINTAINED. 1 ON 1 SITTER AT ALL TIMES. PATIENT REMAINS CALM AND COOPERATIVE. PATIENT TOLERATED MEALS AND MEDS WELL. ALL NEEDS ANTICIPATED. KEPT CLEAN AND DRY. CALL LIGHT WITHIN REACHED. BED LOCKED AND IN LOWEST POSITION. SAFETY MAINTAINED. PLAN OF CARE DISCUSSED WITH PATIENT. WILL CONTINUE TO MONITOR CLOSELY. ENDORSED TO PM NURSE FOR MAXX.
[2018-12-20 20:00] VITALS: BP 106/71
[2018-12-21 04:00] VITALS: BP 126/51
[2018-12-21 06:44] LABS: ALBUMIN 2.7 g/dL (3.4-5.0); BILIRUBIN,DIRECT 0.1 mg/dL (0.0-0.2); BILIRUBIN,TOTAL 0.1 mg/dL (0.2-1.0); CALCIUM, SERUM 8.9 mg/dL (8.5-10.1); MAGNESIUM 1.7 mg/dL (1.8-2.4); PHOSPHORUS 3.9 mg/dL (2.5-4.9); POTASSIUM 4.3 mmol/L (3.5-5.1); TOTAL PROTEIN, SERUM 7.1 g/dL (6.4-8.2)
--- NOTE | 2018-12-21 07:15 | NUR ---
MS RN OPENING NOTE PT ASLEEP IN BED, ON ROOM AIR, SATURATING WELL, RESPIRATIONS EASY AND UNLABORED, NO SIGNS OF RESPIRATORY DISTRESS NOTED. RIGHT FOREARM IV SITE G22 PATENT. BED IN LOW POSITION, LOCKED, CALL LIGHT WITHIN REACH.
[2018-12-21] MEDS: PANTOPRAZOLE 40 MG TABLET.DR PO SCH (07:24)
[2018-12-21] MEDS: RIFAMPIN 300 MG CAPSULE PO SCH (07:25)
[2018-12-21] MEDS: LORAZEPAM 0.5 MG TABLET PO PRN (07:40)
[2018-12-21] MEDS: BLOOD SUGAR DIAGNOSTIC 1 EACH STRIP IN SCH ×4 (07:53→21:26)
[2018-12-21] MEDS: ZINC SULFATE 220 MG CAPSULE PO SCH (08:45)
[2018-12-21] MEDS: ISONIAZID (300 MG) 300 MG TABLET PO SCH (08:45)
[2018-12-21] MEDS: QUETIAPINE FUMARATE 25 MG TABLET PO SCH ×3 (08:45→16:48)
[2018-12-21] MEDS: MEMANTINE HCL 5 MG TABLET PO SCH ×2 (08:45→16:48)
[2018-12-21] MEDS: FERROUS SULFATE (325 MG) 325 MG/TAB TABLET PO SCH ×2 (08:45→16:48)
[2018-12-21] MEDS: PYRIDOXINE HCL 50 MG TABLET PO SCH (08:46)
[2018-12-21] MEDS: PYRAZINAMIDE 500 MG TABLET PO SCH (08:46)
[2018-12-21] MEDS: ETHAMBUTOL HCL (400 MG) 400 MG TABLET PO SCH (08:46)
[2018-12-21] MEDS: Z GUARD REMEDY 2 OZ OINT TP SCH ×2 (08:47→21:26)
[2018-12-21] MEDS: Magnesium 1GM/D5W 100ML PREMIX 100 ML IV SCH ×2 (10:08→11:29)
[2018-12-21 12:00] VITALS: BP 118/74
[2018-12-21] MEDS: INSULIN REGULAR, HUMAN 100 UNIT/ML 3 ML VIAL SQ PRN (12:36)
--- NOTE | 2018-12-21 16:32 | NUR ---
PT REMOVED IV FROM RIGHT FOREARM, APPLIED DRESSING. PT REFUSED FOR NEW IV SITE PLACEMENT.
--- NOTE | 2018-12-21 18:39 | NUR ---
MS RN CLOSING NOTE PT AWAKE IN BED, ALERT AND ORIENTED X 2, ON ROOM AIR, SATURATING WELL, NO SIGNS OF RESPIRATORY DISTRESS NOTED. PROVIDED SAFETY AND COMFORT TO PT THROUGHOUT SHIFT, ALL DUE MEDS GIVEN. AIRBORNE PRECAUTIONS MAINTAINED. BED IN LOW POSITION, LOCKED, CALL LIGHT WITHIN REACH. WILL ENDORSE TO NOC SHIFT NURSE.
[2018-12-21 20:00] VITALS: BP 103/66
--- NOTE | 2018-12-21 20:00 | NUR ---
received pt in bed asleep, sitter watching pt . kept on airborne isolation. sitter to keep pt in the room and prevent him from leaving the hospital. still awaiting for TB clearance before discharge. will continue to monitor.
[2018-12-22 04:00] VITALS: BP 136/80
[2018-12-22] MEDS: RIFAMPIN 300 MG CAPSULE PO SCH (06:18)
[2018-12-22 06:52] LABS: CALCIUM, SERUM 8.8 mg/dL (8.5-10.1); POTASSIUM 4.2 mmol/L (3.5-5.1)
--- NOTE | 2018-12-22 07:22 | NUR ---
MS RN OPENING NOTE PT ASLEEP IN BED, ON ROOM AIR, SATURATING WELL, RESPIRATIONS EASY AND UNLABORED, NO SIGNS OF RESPIRATORY DISTRESS NOTED. BED IN LOW POSITION, LOCKED, CALL LIGHT WITHIN REACH. AIRBORNE PRECAUTIONS OBSERVED, SITTER BY BEDSIDE.
[2018-12-22] MEDS: BLOOD SUGAR DIAGNOSTIC 1 EACH STRIP IN SCH ×4 (07:36→22:18)
[2018-12-22] MEDS: PANTOPRAZOLE 40 MG TABLET.DR PO SCH (07:36)
[2018-12-22 08:00] VITALS: BP 122/72
[2018-12-22] MEDS: ZINC SULFATE 220 MG CAPSULE PO SCH (09:20)
[2018-12-22] MEDS: PYRIDOXINE HCL 50 MG TABLET PO SCH (09:20)
[2018-12-22] MEDS: PYRAZINAMIDE 500 MG TABLET PO SCH (09:20)
[2018-12-22] MEDS: QUETIAPINE FUMARATE 25 MG TABLET PO SCH ×3 (09:20→16:07)
[2018-12-22] MEDS: ISONIAZID (300 MG) 300 MG TABLET PO SCH (09:20)
[2018-12-22] MEDS: FERROUS SULFATE (325 MG) 325 MG/TAB TABLET PO SCH ×2 (09:20→16:05)
[2018-12-22] MEDS: ETHAMBUTOL HCL (400 MG) 400 MG TABLET PO SCH (09:20)
[2018-12-22] MEDS: MEMANTINE HCL 5 MG TABLET PO SCH ×2 (09:20→16:05)
[2018-12-22] MEDS: Z GUARD REMEDY 2 OZ OINT TP SCH ×2 (09:21→21:03)
--- NOTE | 2018-12-22 09:43 | NUR ---
care taken over, patient asleep, but arousable, no complaint when first seen. took all po pills without any incident, alert, but disoriented, and confused. On RA, sat 97-98%, iso for possible TB remains.
[2018-12-22] MEDS: INSULIN REGULAR, HUMAN 100 UNIT/ML 3 ML VIAL SQ PRN ×2 (12:03→16:08)
[2018-12-22] MEDS: LORAZEPAM 0.5 MG TABLET PO PRN (12:12)
[2018-12-22 12:15] VITALS: BP 116/72
--- NOTE | 2018-12-22 15:42 | NUR ---
alert, out of bed, sitting in chair, and cooperative when meds given. appetite for both breakfast and lunch, 100%. Remains in airborne iso until cleared. seen by attending, no new orders.
[2018-12-22 16:01] VITALS: BP 104/71
--- NOTE | 2018-12-22 19:30 | NUR ---
MS RN OPENING NOTES RECEIVED PATIENT IN BED AWAKE, RESTING COMFORTABLY. PATIENT ALERT AND ORIENTED X2. ABLE TO MAKE NEEDS KNOWN. NO PAIN OR ACUTE DISTRESS AT THIS TIME. RESPIRATION EVEN AND UNLABORED. SKIN IS DRY/WARM. PATIENT CALM AND COOPERATIVE AT THIS MOMENT. IV ACCESS ON LFA #22G PATENT AND FLUSHING WELL. CALL LIGHT WITHIN REACHED. BED LOCKED AND IN LOWEST POSITION. SAFETY MAINTAINED. WILL CONTINUE TO MONITOR CLOSELY. 1 ON 1 SITTER CLOSE TO ROOM AT ALL TIMES.
[2018-12-22 20:00] VITALS: BP 106/64
[2018-12-23 04:00] VITALS: BP 141/90
[2018-12-23 06:19] LABS: CREATININE 1.1 mg/dL (0.6-1.3); POTASSIUM 5.2 mmol/L (3.5-5.1)
[2018-12-23 06:24] LABS: ALBUMIN 2.9 g/dL (3.4-5.0); BILIRUBIN,DIRECT 0.1 mg/dL (0.0-0.2); BILIRUBIN,TOTAL 0.2 mg/dL (0.2-1.0); PHOSPHORUS 3.6 mg/dL (2.5-4.9); TOTAL PROTEIN, SERUM 7.7 g/dL (6.4-8.2)
[2018-12-23 06:25] LABS: BASOPHILS % (AUTO) 0.6 % (0.0-2.0); EOSINOPHILS % (AUTO) 9.3 % (0.0-6.0); HEMATOCRIT 41 % (39-51); HEMOGLOBIN 13.6 g/dL (13.5-17.5); LYMPHOCYTES # (AUTO) 2.2 /CMM (0.8-4.8); LYMPHOCYTES % (AUTO) 44.4 % (20.0-44.0); MEAN CORPUSCULAR HGB CONC 33 g/dl (31.0-36.0); MEAN CORPUSCULAR VOLUME 97 fL (80-96); MONOCYTES # (AUTO) 0.6 /CMM (0.1-1.30); MONOCYTES % (AUTO) 11.3 % (2.0-12.0); NEUTROPHILS # (AUTO) 1.7 /CMM (1.8-8.9); NEUTROPHILS % (AUTO) 34.4 % (43.0-81.0); PLATELET COUNT (AUTO) 141 /CMM (150-450); RED BLOOD CELL COUNT(AUTO) 4.21 MIL/uL (4.5-6.0); WHITE BLOOD COUNT (AUTO) 4.9 K/uL (4.3-11.0)
--- NOTE | 2018-12-23 07:14 | NUR ---
MS RN CLOSING NOTES PATIENT IN BED AWAKE, RESTING COMFORTABLY. PATIENT ALERT AND ORIENTED X2. ABLE TO MAKE NEEDS KNOWN. NO PAIN OR ACUTE DISTRESS AT THIS TIME. RESPIRATION EVEN AND UNLABORED. SKIN IS DRY/WARM. PATIENT CALM AND COOPERATIVE AT THIS MOMENT. NO IV ACCESS. CALL LIGHT WITHIN REACHED. BED LOCKED AND IN LOWEST POSITION. SAFETY MAINTAINED. WILL CONTINUE TO MONITOR CLOSELY. 1 ON 1 SITTER CLOSE TO ROOM AT ALL TIMES. WILL ENDORSE THE PATIENT TO AM RN FOR MAXX
[2018-12-23] MEDS: RIFAMPIN 300 MG CAPSULE PO SCH (07:18)
[2018-12-23] MEDS: PANTOPRAZOLE 40 MG TABLET.DR PO SCH (07:18)
[2018-12-23] MEDS: BLOOD SUGAR DIAGNOSTIC 1 EACH STRIP IN SCH ×4 (07:50→22:02)
[2018-12-23 08:00] VITALS: BP 122/71
--- NOTE | 2018-12-23 08:06 | NUR ---
MS RN NOTES OPENING RECEIVED PT IN BED SLEEPING. AROUSED WHEN NAME CALLED. A/O X3 , NO SIGNS OF SOB AND DISCOMFORT NOTED. PT HAS NO IV LINE. NO COMPLAIN OF PAIN. ALL SAFETY MEASURES OBSERVED, BED IN THE LOWEST POSITION AND LOCKED, SIDE RAILS UP X2, CALL LIGHT WITHIN CLOSE REACH.WILL CONTINUE TO MONITOR.
[2018-12-23] MEDS: Z GUARD REMEDY 2 OZ OINT TP SCH ×2 (09:00→22:02)
[2018-12-23] MEDS ORDERED: QUET25TA PO (09:33)
[2018-12-23] MEDS: MEMANTINE HCL 5 MG TABLET PO SCH ×2 (09:56→17:10)
[2018-12-23] MEDS: PYRAZINAMIDE 500 MG TABLET PO SCH (09:56)
[2018-12-23] MEDS: QUETIAPINE FUMARATE 25 MG TABLET PO SCH ×3 (09:56→17:10)
[2018-12-23] MEDS: PYRIDOXINE HCL 50 MG TABLET PO SCH (09:56)
[2018-12-23] MEDS: ETHAMBUTOL HCL (400 MG) 400 MG TABLET PO SCH (09:57)
[2018-12-23] MEDS: ISONIAZID (300 MG) 300 MG TABLET PO SCH (09:57)
[2018-12-23] MEDS: ZINC SULFATE 220 MG CAPSULE PO SCH (10:03)
[2018-12-23] MEDS: FERROUS SULFATE (325 MG) 325 MG/TAB TABLET PO SCH ×2 (10:03→17:10)
[2018-12-23 12:00] VITALS: BP 121/71
--- NOTE | 2018-12-23 19:30 | NUR ---
MS RN NOTES PT IS IN BED SITTING COMFORTABLY, NO SIGNS OF SOB AND DISCOMFORT NOTED. A/O X3. PT ON TB ISOLATION WITH SITTER. ALL NEED ATTENDED. SAFETY MEASURES OBSERVED BED AT LOWEST POSITION AND LOCKED, CALL LIGHT IN REACH. NO IV ACCESS. ENDORSED TO GRINDER SET UP OPERATOR THREAD NURSE FOR MAXX.
--- NOTE | 2018-12-23 19:58 | NUR ---
MS RN NOTES, RECEIVED PT IN BED AWAKE AT THIS TIME, A/O X3 , BREATHING EVEN AND UNLABORED NO SIGNS OF SOB AND ACUTE DISTRESS NOTED, PATIENT WITH NO IV ACCESS, SINCE LAST NIGHT CHARGE NURSE AWARE, ALL SAFETY MEASURES OBSERVED, BED LOCKED AND IN LOWEST POSITION, SIDE RAILS UP X2, CALL LIGHT WITHIN CLOSE REACH, SUPERVISE BY SITTER AT ALL TIMES, ISOLATION PRECAUTIONS IN PLACED, WILL CONTINUE TO MONITOR CLOSELY.
[2018-12-23 20:00] VITALS: BP 117/75
--- NOTE | 2018-12-23 20:30 | NUR ---
RN NOTES, DR PARRA ON THE DEPARTMENT AT THIS TIME AND INFORMED THAT PATIENT IS WITH NO IV ACCESS AND REFUSED US TO START A NEW IV LINE, PER MD OK TO NOT HAVE IV ACCESS.
[2018-12-23] MEDS: INSULIN REGULAR, HUMAN 100 UNIT/ML 3 ML VIAL SQ PRN (22:08)
[2018-12-24 04:00] VITALS: BP 124/82
--- NOTE | 2018-12-24 06:50 | NUR ---
MS RN NOTES, BED AWAKE ASLEEP BUT AROUSES EASILY TO VERBAL STIMULI, BREATHING EVEN AND UNLABORED NO SIGNS OF SOB AND ACUTE DISTRESS NOTED, NO IV ACCESS DR PARRA AWARE, ALL SAFETY MEASURES OBSERVED, NO SIGNIFICANT CHANGE IN CONDITION DURING THE NIGHT, ISOLATION PRECAUTIONS IN PLACED, WILL CONTINUE TO MONITOR CLOSELY.
--- NOTE | 2018-12-24 07:00 | NUR ---
RN NOTES, PATIENT ENDORSED TO NORMA FRYE FOR CONTINUITY OF CARE.
[2018-12-24] MEDS: PANTOPRAZOLE 40 MG TABLET.DR PO SCH (07:27)
[2018-12-24] MEDS: RIFAMPIN 300 MG CAPSULE PO SCH (07:27)
[2018-12-24] MEDS: BLOOD SUGAR DIAGNOSTIC 1 EACH STRIP IN SCH ×4 (07:39→21:49)
--- NOTE | 2018-12-24 07:43 | NUR ---
MS RN OPENING NOTES RECEIVED PT IN BED A/O X3. NO SIGNS OF SOB AND DISCOMFORT NOTED AT THIS TIME. PT HAS NO IV LINE AND DR MÁRQUEZ IS AWARE. ALL SAFETY MEASURES OBSERVED. BED AT LOWEST POSITION LOCKED SIDE RAILS UPX2. CALL LIGHT WITHIN REACH. SITTER AT BED SIDE.WILL CONTINUE TO MONITOR.
[2018-12-24 08:00] VITALS: BP 112/73
[2018-12-24] MEDS: Z GUARD REMEDY 2 OZ OINT TP SCH ×2 (09:00→21:49)
[2018-12-24] MEDS: ZINC SULFATE 220 MG CAPSULE PO SCH (10:04)
[2018-12-24] MEDS: ISONIAZID (300 MG) 300 MG TABLET PO SCH (10:04)
[2018-12-24] MEDS: QUETIAPINE FUMARATE 25 MG TABLET PO SCH ×3 (10:05→17:14)
[2018-12-24] MEDS: ETHAMBUTOL HCL (400 MG) 400 MG TABLET PO SCH (10:05)
[2018-12-24] MEDS: MEMANTINE HCL 5 MG TABLET PO SCH ×2 (10:05→17:14)
[2018-12-24] MEDS: FERROUS SULFATE (325 MG) 325 MG/TAB TABLET PO SCH ×2 (10:05→17:14)
[2018-12-24] MEDS: PYRIDOXINE HCL 50 MG TABLET PO SCH (10:05)
[2018-12-24] MEDS: PYRAZINAMIDE 500 MG TABLET PO SCH (10:06)
[2018-12-24] MEDS: LORAZEPAM 0.5 MG TABLET PO PRN (10:08)
[2018-12-24 12:00] VITALS: BP 109/72
[2018-12-24] MEDS: INSULIN REGULAR, HUMAN 100 UNIT/ML 3 ML VIAL SQ PRN ×2 (14:49→22:13)
[2018-12-24 16:00] VITALS: BP 109/72
--- NOTE | 2018-12-24 19:30 | NUR ---
MS RN NOTES CLOSING PT IN BED SITTING COMFORTABLY. NO ISOLATION. AWAKE A/O X3. NO SOB AND DISCOMFORT NOTED AT THIS TIME. ALL NEEDS ATTENDED DURING SHIFT. SAFETY MEASURES OBSERVED AND IMPLEMENTED. BED AT THE LOWEST POSITION SIDE RAILS UPX3. CALL LIGHT WITHIN CLOSE REACH. ENDORSED TO CONSULTANTS INTERN NURSE FOR MAXX.
[2018-12-24 20:00] VITALS: BP_SYST 122; BP_SYST 125; BP_DIAS 75; BP_DIAS 89
[2018-12-24 22:00] VITALS: BP 122/75
[2018-12-25 04:00] VITALS: BP 112/72
--- NOTE | 2018-12-25 06:38 | NUR ---
MS RN NOTES, PATIENT SLEEPING AT THIS TIME, BUT AROUSES EASILY TO VERBAL STIMULI, BREATHING EVEN AND UNLABORED NO SIGNS OF SOB AND ACUTE DISTRESS NOTED, ALL SAFETY MEASURES IN PLACED, NO SIGNIFICANT CHANGE IN CONDITION DURING THE NIGHT, ISOLATION PRECAUTIONS DC YESTERDAY, POSSIBLE DISCHARGE TODAY, CAN HANDLER IN CASE, WILL ENDORSE CONTINUITY OF CARE TO ONCOMING NURSE.
--- NOTE | 2018-12-25 07:30 | NUR ---
RN OPENING NOTES RECEIVED PATIENT RESTING IN BED COMFORTABLY, DENIES ANY PAIN OR DISCOMFORT AT THIS TIME. HE IS AOX3, VERBAL, AND AMBULATORY. HE IS ON RA, TOLERATING WELL, SHOWS NO S/SX OF RESP DISTRESS OR SOB. PT HAS NO IV ACCESS, MD IS AWARE. HE IS ON A REGULAR DIET, TOLERATING WELL. SAFETY MEASURES HAVE BEEN IMPLEMENTED, CALL LIGHT IS WITHIN REACH, BED IS IN LOWEST AND LOCKED POSITION, SIDE RAILS UP X2, WILL CONTINUE TO MONITOR FOR ANY CHANGES.
[2018-12-25] MEDS: PANTOPRAZOLE 40 MG TABLET.DR PO SCH (07:40)
[2018-12-25] MEDS: RIFAMPIN 300 MG CAPSULE PO SCH (07:40)
[2018-12-25] MEDS: BLOOD SUGAR DIAGNOSTIC 1 EACH STRIP IN SCH ×3 (07:47→17:30)
[2018-12-25 08:00] VITALS: BP 128/77
[2018-12-25] MEDS: PYRIDOXINE HCL 50 MG TABLET PO SCH (08:43)
[2018-12-25] MEDS: PYRAZINAMIDE 500 MG TABLET PO SCH (08:44)
[2018-12-25] MEDS: MEMANTINE HCL 5 MG TABLET PO SCH ×2 (08:44→17:01)
[2018-12-25] MEDS: ISONIAZID (300 MG) 300 MG TABLET PO SCH (08:44)
[2018-12-25] MEDS: ETHAMBUTOL HCL (400 MG) 400 MG TABLET PO SCH (08:44)
[2018-12-25] MEDS: ZINC SULFATE 220 MG CAPSULE PO SCH (08:44)
[2018-12-25] MEDS: FERROUS SULFATE (325 MG) 325 MG/TAB TABLET PO SCH ×2 (08:44→17:01)
[2018-12-25] MEDS: QUETIAPINE FUMARATE 25 MG TABLET PO SCH ×3 (08:44→17:01)
[2018-12-25] MEDS: Z GUARD REMEDY 2 OZ OINT TP SCH (08:54)
[2018-12-25 16:00] VITALS: BP 108/81
[2018-12-25] MEDS: LORAZEPAM 0.5 MG TABLET PO PRN (17:01)
--- NOTE | 2018-12-25 19:03 | NUR ---
step daughter to pickup patient with new pharmacy [facility],phone number ,case repairer marilee made aware,per cm they will call in prescription tommorow morning since pharmacy close already,family made aware.
--- NOTE | 2018-12-25 19:38 | NUR ---
PT HAS BEEN DISCHARGED FROM THE UNIT. HE LEFT VIA WHEELCHAIR. EXIT CARE WAS PROVIDED WELL INSTRUCTIONS ON HOW TO GET NEW PRESCRIPTIONS. PT REFUSED TO TAKE PICTURES OF WOUNDS. HE LEFT IN STABLE CONDITION. PT HAD NO IV SITE OR CLOTHES. CLOTHES WERE PROVIDED FORM THE ER
== END 2018-12-25 20:00 | disposition home or self-care (01) | DRG 867 ==
LOC: ER 13:25 → MEDSG1 14:08
PROVIDERS: ADMIT Student in an Organized Health Care Education/Training Program; ATTEND Internal Medicine
DX: A31.9 Mycobacterial infection, unspecified (principal); J15.9 Unspecified bacterial pneumonia; E44.0 Moderate protein-calorie malnutrition; J44.0 Chronic obstructive pulmonary disease with (acute) lower respiratory infection; F03.91 Unspecified dementia, unspecified severity, with behavioral disturbance; E11.40 Type 2 diabetes mellitus with diabetic neuropathy, unspecified; D50.9 Iron deficiency anemia, unspecified; E83.42 Hypomagnesemia; Z86.73 Personal history of transient ischemic attack (TIA), and cerebral infarction without residual deficits; E11.621 Type 2 diabetes mellitus with foot ulcer; L97.519 Non-pressure chronic ulcer of other part of right foot with unspecified severity; Z79.4 Long term (current) use of insulin; E11.42 Type 2 diabetes mellitus with diabetic polyneuropathy; G40.909 Epilepsy, unspecified, not intractable, without status epilepticus; F41.9 Anxiety disorder, unspecified; F10.10 Alcohol abuse, uncomplicated; Z88.1 Allergy status to other antibiotic agents; E11.51 Type 2 diabetes mellitus with diabetic peripheral angiopathy without gangrene; Z68.20 Body mass index [BMI] 20.0-20.9, adult; F20.9 Schizophrenia, unspecified; S90.414A Abrasion, right lesser toe(s), initial encounter; X58.XXXA Exposure to other specified factors, initial encounter; Y93.9 Activity, unspecified; Y92.129 Unspecified place in nursing home as the place of occurrence of the external cause; I10 Essential (primary) hypertension; R23.4 Changes in skin texture; L98.8 Other specified disorders of the skin and subcutaneous tissue; Z96.652 Presence of left artificial knee joint
CPT/HCPCS: 36415; 71046; 71250-TC; 80048-TC; 80076-TC; 82962-TC; 83735-TC; 84100-TC; 84155-TC; 85025-TC; 87081-TC; 87116; 87206; 87556; 94640-TC; 97116-TC; 97530-TC; A4218; G0378; J0692; J1815; J3475; J3490; J7050; J7060